=== PATIENT | female | born 1950 | race Two or more races ===

== ENCOUNTER → 2016-11-14 | Outpatient (CLI) | payer MEDICARE, OTHER ==
[2016-11-14 13:01] LABS: Albumin 3.6 g/dL (3.4-5.0); BUN/Creatinine Ratio 23.2; Bilirubin, Total 0.3 mg/dL (0.2-1.0); Calcium 8.9 mg/dL (8.5-10.1); Potassium 3.8 mmol/L (3.5-5.1); Total Protein 6.6 g/dL (6.4-8.2)
== END | disposition home or self-care (01) ==
LOC: Rad HDHVI 08:47
PROVIDERS: ATTEND Internal Medicine Cardiovascular Disease
DX: E78.00 Pure hypercholesterolemia, unspecified (principal); I10 Essential (primary) hypertension; E11.9 Type 2 diabetes mellitus without complications
CPT/HCPCS: 36415; 77078; 80053; 80061; 83036

== ENCOUNTER → 2017-01-14 | Outpatient (CLI) | payer MEDICARE ==
[2017-01-14 16:50] LABS: Urine Bilirubin Negative (Negative); Urine Blood Negative /uL (Negative); Urine Color PINK (Yellow); Urine Glucose Normal (Normal); Urine Ketone Negative (Negative); Urine Nitrite Negative (Negative); Urine Urobilinogen Normal (Negative)
== END | disposition home or self-care (01) ==
LOC: LAB 14:10
PROVIDERS: ATTEND Internal Medicine Cardiovascular Disease
DX: N39.0 Urinary tract infection, site not specified (principal)
CPT/HCPCS: 81003; 87086

== ENCOUNTER → 2017-04-21 | Outpatient (CLI) | payer MEDICARE ==
[2017-04-21 13:26] LABS: Albumin 4.1 g/dL (3.4-5.0); BUN/Creatinine Ratio 27.6; Bilirubin, Total 0.3 mg/dL (0.2-1.0); Calcium 10.4 mg/dL (8.5-10.1); Potassium 4.7 mmol/L (3.5-5.1); Total Protein 7.6 g/dL (6.4-8.2)
== END | disposition home or self-care (01) ==
LOC: LAB 09:20
PROVIDERS: ATTEND Internal Medicine Cardiovascular Disease
DX: I10 Essential (primary) hypertension (principal); E11.9 Type 2 diabetes mellitus without complications; E78.00 Pure hypercholesterolemia, unspecified
CPT/HCPCS: 36415; 80053; 80061; 83036

== ENCOUNTER → 2018-03-22 | Outpatient (CLI) | payer MEDICARE ==
[2018-03-22 13:42] LABS: BUN/Creatinine Ratio 23.5; Potassium 3.9 mmol/L (3.5-5.1)
== END | disposition home or self-care (01) ==
LOC: LAB 10:47
PROVIDERS: ATTEND Internal Medicine
DX: E11.9 Type 2 diabetes mellitus without complications (principal); I10 Essential (primary) hypertension
CPT/HCPCS: 36415; 80048; 83036

== ENCOUNTER → 2018-05-11 | Outpatient (CLI) | payer MEDICARE ==
[2018-05-11 13:06] VITALS: BP 147/74
[2018-05-11 13:26] VITALS: BP 147/74
== END | disposition home or self-care (01) ==
LOC: CHF HDHVI 13:00
PROVIDERS: ATTEND Internal Medicine Cardiovascular Disease
DX: I10 Essential (primary) hypertension (principal)
CPT/HCPCS: G0463

== ENCOUNTER → 2018-05-12 | Outpatient (CLI) | payer MEDICARE ==
[~2018-05-12] MED LIST: IOHEXOL 350 MG/ML 100ML IJ ONE; READI-CAT 2 (BARIUM SULF)(VANILLA SMOOTHIE) 450ML ONE
[2018-05-12 11:15] VITALS: BP 128/59
[2018-05-12 12:00] VITALS: BP 138/62
== END | disposition home or self-care (01) ==
LOC: Rad HDHVI 11:05
PROVIDERS: ATTEND Internal Medicine Cardiovascular Disease
DX: K57.90 Diverticulosis of intestine, part unspecified, without perforation or abscess without bleeding (principal); R16.0 Hepatomegaly, not elsewhere classified
CPT/HCPCS: 74177; 82565; G0463; Q9967

== ENCOUNTER → 2018-05-13 | Outpatient (CLI) | payer MEDICARE | END | disposition home or self-care (01) | LOC: Rad HDHVI 13:56 | PROVIDERS: ATTEND Internal Medicine Cardiovascular Disease | DX: I10 Essential (primary) hypertension (principal); E78.5 Hyperlipidemia, unspecified | CPT/HCPCS: 93306 ==

== ENCOUNTER → 2018-05-20 | Outpatient (CLI) | payer MEDICARE ==
[~2018-05-20] VITALS: Ht 165.1 cm; Wt 85.7 kg
== END | disposition home or self-care (01) ==
LOC: Rad HDHVI 13:55
PROVIDERS: ATTEND Internal Medicine Cardiovascular Disease
DX: I10 Essential (primary) hypertension (principal); E11.9 Type 2 diabetes mellitus without complications; E78.5 Hyperlipidemia, unspecified; Z68.31 Body mass index [BMI] 31.0-31.9, adult
CPT/HCPCS: 78452; 93017; 96374; A9500

== ENCOUNTER → 2018-05-24 | Outpatient (CLI) | payer MEDICARE ==
[2018-05-24 12:30] LABS: Albumin 3.9 g/dL (3.4-5.0)
[2018-05-24 12:34] LABS: Bilirubin, Direct 0.1 mg/dL (0-0.2); Bilirubin, Total 0.5 mg/dL (0.2-1.0); Total Protein 7.2 g/dL (6.4-8.2)
[2018-05-24 12:40] LABS: Hepatitis B Surface Antibody Negative
[2018-05-24 13:17] LABS: Hepatitis A Total Antibody Positive
[2018-05-24 13:50] LABS: Hepatitis B Core Total AB Negative; Hepatitis B Surface Antigen Negative (Negative); Hepatitis C Antibody Negative (Negative)
== END | disposition home or self-care (01) ==
LOC: LAB 10:06
PROVIDERS: ATTEND Internal Medicine Cardiovascular Disease
DX: K74.1 Hepatic sclerosis (principal); Z20.9 Contact with and (suspected) exposure to unspecified communicable disease; K74.5 Biliary cirrhosis, unspecified
CPT/HCPCS: 36415; 80076; 86704; 86706; 86708; 86803; 87340

== ENCOUNTER → 2018-06-28 | Outpatient (CLI) | payer MEDICARE ==
[2018-06-28 12:00] LABS: Chloride 104 mmol/L (98-107); Potassium 3.9 mmol/L (3.5-5.1); Sodium 136 mmol/L (136-145)
[2018-06-28 12:27] LABS: Alanine Aminotransferase 48 U/L (13-56); Albumin 3.7 g/dL (3.4-5.0); Alkaline Phosphatase 72 U/L (45-117); Anion Gap 8 (5-15); Aspartate Aminotransferase 18 U/L (15-37); BUN/Creatinine Ratio 24.7; Bilirubin, Total 0.3 mg/dL (0.2-1.0); Blood Urea Nitrogen 24 mg/dL (7-18); Calcium 9.4 mg/dL (8.5-10.1); Carbon Dioxide 24 mmol/L (21-32); Cholesterol 211 mg/dL (< 200); GFR African American > 60 mL/min; GFR Non-African American > 60 mL/min; Glucose 220 mg/dL (74-106); HDL Cholesterol 31 mg/dL (40-59); LDL Cholesterol 161 mg/dL (< 100); Triglycerides 207 mg/dL (< 150)
== END | disposition home or self-care (01) ==
LOC: LAB 08:31
PROVIDERS: ATTEND Internal Medicine Cardiovascular Disease
DX: E78.5 Hyperlipidemia, unspecified (principal); I10 Essential (primary) hypertension; E11.9 Type 2 diabetes mellitus without complications
CPT/HCPCS: 36415; 80053; 80061; 83036

== ENCOUNTER → 2018-07-14 | Outpatient (CLI) | payer MEDICARE ==
[~2018-07-14] MED LIST changes: -READI-CAT 2 (BARIUM SULF)(VANILLA SMOOTHIE) 450ML ONE
[2018-07-14 13:10] VITALS: BP 129/74
--- NOTE | 2018-07-14 13:10 | NUR ---
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 PT TO ADMINISTER DOSE OF 0.75MG Q WEEK. REVIEWED DOSING AND ADMINISTRATION. WITNESSED PT FOR MEDICATION ADMINISTRATION. PROCEEDED WELL. TOLERATED WELL. FURTHER QUESTIONS DENIED.
== END | disposition home or self-care (01) ==
LOC: CHF HDHVI 13:07
PROVIDERS: ATTEND Internal Medicine Cardiovascular Disease
DX: I10 Essential (primary) hypertension (principal); R51 Headache; E78.5 Hyperlipidemia, unspecified
CPT/HCPCS: G0463

== ENCOUNTER → 2018-07-16 | Outpatient (CLI) | payer MEDICARE ==
[2018-07-16 12:32] VITALS: BP 110/56
--- NOTE | 2018-07-16 12:38 | NUR ---
IN TO CLINIC FOR CT SCAN. IV PLACED TO LEFT AC BY CACH[employer]RO CARDENAS. SITE USED FOR CT SCAN. BENIGN POST CT SCAN. DCD AND PT RECIEVED METFORMIN INSTRUCTIONS WITH REPEAT BACK INSTRUCTIONS OBTAINED. Discharge Instructions See e-MAR for any mediations given with this visit. Patient education given on disease process. Patient verbalized understanding. Previous labs reviewed. Patient discharged in stable condition with after care instructions and follow up appointment.
== END | disposition home or self-care (01) ==
LOC: Rad HDHVI 11:29
PROVIDERS: ATTEND Internal Medicine Cardiovascular Disease
DX: I67.82 Cerebral ischemia (principal); M48.02 Spinal stenosis, cervical region
CPT/HCPCS: 70470; 72125; 82565; G0463

== ENCOUNTER → 2018-09-09 | Outpatient (CLI) | payer MEDICARE ==
[2018-09-09 12:20] LABS: Basophils # (auto) 0 uL; Basophils % (auto) 0.5 % (0.0-2.0); Eosinophils # (auto) 0.2 uL; Eosinophils % (auto) 2.1 % (0.0-7.0); Hematocrit 39.1 % (36.0-46.0); Lymphocytes # (auto) 2.6 uL; Lymphocytes % (auto) 28.7 % (10.0-50.0); Mean Corpuscular Hemoglobin 30.7 pg (28.0-32.0); Mean Corpuscular Hgb Conc. 33.3 g/dL (32.0-36.0); Mean Corpuscular Volume 92.2 fL (80.0-100.0); Monocytes # (auto) 0.5 uL; Monocytes % (auto) 5.8 % (0.0-12.0); Neutrophils # (auto) 5.8 uL; Neutrophils % (auto) 62.9 % (37.0-80.0); Nucleated Red Blood Cells % 0.2 %; Platelet Count (auto) 277 10^3/uL (140-450); Red Blood Cells 4.24 10^6/uL (4.0-5.20); Red Cell Distribution Width 12.7 % (11.8-14.3); White Blood Cell 9.2 10^3/uL (4.4-10.8)
[2018-09-09 12:22] LABS: Albumin 4.1 g/dL (3.4-5.0); Calcium 10.1 mg/dL (8.5-10.1); Potassium 3.8 mmol/L (3.5-5.1)
[2018-09-09 12:28] LABS: BUN/Creatinine Ratio 34.8; Bilirubin, Total 0.2 mg/dL (0.2-1.0); Total Protein 7.5 g/dL (6.4-8.2)
[2018-09-09 12:32] LABS: Free T4 (Free Thyroxine) 1.28 ng/dL (0.89-1.76); Hepatitis B Surface Antibody Negative
[2018-09-09 12:34] LABS: Urine Blood Negative /uL (Negative); Urine Specific Gravity 1.025 (1.001-1.035)
[2018-09-09 13:09] LABS: Hepatitis A Total Antibody Positive
[2018-09-09 13:39] LABS: Hepatitis B Core Total AB Negative; Hepatitis B Surface Antigen Negative (Negative); Hepatitis C Antibody Negative (Negative)
== END | disposition home or self-care (01) ==
LOC: LAB 09:15
PROVIDERS: ATTEND Internal Medicine Cardiovascular Disease
DX: E55.9 Vitamin D deficiency, unspecified (principal); E78.5 Hyperlipidemia, unspecified; K74.1 Hepatic sclerosis; I10 Essential (primary) hypertension; E03.9 Hypothyroidism, unspecified; E11.9 Type 2 diabetes mellitus without complications; D51.9 Vitamin B12 deficiency anemia, unspecified; N39.0 Urinary tract infection, site not specified; Z20.5 Contact with and (suspected) exposure to viral hepatitis
CPT/HCPCS: 36415; 80053; 80061; 81003; 82306; 82607; 83036; 84439; 84443; 85025; 86704; 86706; 86708; 86803; 87086; 87340

== ENCOUNTER → 2018-12-01 | Outpatient (CLI) | payer MEDICARE ==
[~2018-12-01] VITALS: Ht 165.1 cm; Wt 84.4 kg
[~2018-12-01] MED LIST changes: +CHLO50TA PO; +CHOL20007 PO; +CLOP75TA28 PO; -IOHEXOL 350 MG/ML 100ML IJ ONE; +LISI40TA PO; +METF-370 PO; +SITA100T7 PO
[2018-12-01 12:10] LABS: Basophils # (auto) 0 uL; Basophils % (auto) 0.6 % (0.0-2.0); Eosinophils # (auto) 0.1 uL; Eosinophils % (auto) 1.9 % (0.0-7.0); Hematocrit 39.8 % (36.0-46.0); Hemoglobin 13.4 g/dL (12.2-16.2); Lymphocytes # (auto) 2.3 uL; Lymphocytes % (auto) 34.3 % (10.0-50.0); Mean Corpuscular Hemoglobin 31.8 pg (28.0-32.0); Mean Corpuscular Hgb Conc. 33.7 g/dL (32.0-36.0); Mean Corpuscular Volume 94.6 fL (80.0-100.0); Monocytes # (auto) 0.4 uL; Monocytes % (auto) 6.7 % (0.0-12.0); Neutrophils # (auto) 3.7 uL; Neutrophils % (auto) 56.5 % (37.0-80.0); Nucleated Red Blood Cells % 0.1 %; Platelet Count (auto) 249 10^3/uL (140-450); Red Blood Cells 4.21 10^6/uL (4.0-5.20); Red Cell Distribution Width 12.7 % (11.8-14.3); White Blood Cell 6.6 10^3/uL (4.4-10.8)
[2018-12-01 12:18] LABS: Potassium 3.6 mmol/L (3.5-5.1)
[2018-12-01 12:23] LABS: INR < 0.93 (0.9-1.15); Partial Thromboplastin Time 27.4 sec (23.64-32.05)
[2018-12-01 12:26] LABS: BUN/Creatinine Ratio 28.2; Calcium 10.4 mg/dL (8.5-10.1)
== END | disposition home or self-care (01) ==
LOC: Rad HDHVI 08:39
PROVIDERS: ATTEND Internal Medicine Cardiovascular Disease
DX: Z01.812 Encounter for preprocedural laboratory examination (principal); D64.9 Anemia, unspecified; R79.1 Abnormal coagulation profile; I10 Essential (primary) hypertension; Z87.891 Personal history of nicotine dependence
CPT/HCPCS: 36415; 71046; 80048; 85025; 85610; 85730

== ENCOUNTER 2018-12-02 06:56 | Day surgery (SDC) | payer MEDICARE ==
[~2018-12-02] VITALS: Ht 165.1 cm; Wt 84.4 kg
[2018-12-02] MEDS ORDERED: fentaNYL CITRATE 100 MCG/2 ML VL ONE (10:07)
[2018-12-02] MEDS ORDERED: ANGIOMAX 250 MG VIAL IV ONE (10:07)
[2018-12-02] MEDS ORDERED: MIDAZOLAM HCL 1MG/1ML-2 ML VIAL ONE (10:08)
[2018-12-02] MEDS ORDERED: LIDOCAINE 2%HCL (LOCAL ANESTH.) INJ 20ML MDV ONE (10:08)
[2018-12-02] MEDS ORDERED: SODIUM CHL 0.9% 0 ML ONE (10:08)
[2018-12-02] MEDS ORDERED: IOHEXOL 350 MG/ML 100ML IJ ONE ×2 (10:08→10:16)
[2018-12-02] MEDS ORDERED: ACETAMINOPHEN 500 MG TAB PO PRN (11:30)
== END 2018-12-02 13:20 | disposition home or self-care (01) ==
LOC: CATH 06:56
PROVIDERS: ATTEND Internal Medicine Cardiovascular Disease
DX: R07.9 Chest pain, unspecified (principal); R94.39 Abnormal result of other cardiovascular function study; R06.02 Shortness of breath; I73.9 Peripheral vascular disease, unspecified; I10 Essential (primary) hypertension; E11.9 Type 2 diabetes mellitus without complications; Z79.84 Long term (current) use of oral hypoglycemic drugs; Z79.899 Other long term (current) drug therapy; Z87.891 Personal history of nicotine dependence; Z82.49 Family history of ischemic heart disease and other diseases of the circulatory system
CPT/HCPCS: 93458; C1760; C1894; J1644; J2250; J3010; J7030; Q9967; 99152

== ENCOUNTER → 2018-12-21 | Outpatient (CLI) | payer MEDICARE ==
[2018-12-21 16:01] LABS: Calcium 10.4 mg/dL (8.5-10.1); Potassium 3.9 mmol/L (3.5-5.1); Uric Acid 6.2 mg/dL (2.6-6.0)
== END | disposition home or self-care (01) ==
LOC: LAB 11:17
PROVIDERS: ATTEND Internal Medicine
DX: M10.9 Gout, unspecified (principal)
CPT/HCPCS: 36415; 80048; 84550

== ENCOUNTER → 2019-02-08 | Outpatient (CLI) | payer MEDICARE ==
[2019-02-08 11:52] LABS: Potassium 3.8 mmol/L (3.5-5.1)
[2019-02-08 11:55] LABS: BUN/Creatinine Ratio 26.3; Calcium 9.7 mg/dL (8.5-10.1); Uric Acid 3.8 mg/dL (2.6-6.0)
== END | disposition home or self-care (01) ==
LOC: LAB 09:28
PROVIDERS: ATTEND Internal Medicine
DX: M10.9 Gout, unspecified (principal); E11.9 Type 2 diabetes mellitus without complications
CPT/HCPCS: 36415; 80048; 83036; 84550

== ENCOUNTER → 2019-05-17 | Outpatient (CLI) | payer MEDICARE ==
[2019-05-17 12:13] LABS: Calcium 9.6 mg/dL (8.5-10.1); Potassium 3.8 mmol/L (3.5-5.1); Uric Acid 3.8 mg/dL (2.6-6.0)
== END | disposition home or self-care (01) ==
LOC: LAB 08:46
PROVIDERS: ATTEND Internal Medicine Cardiovascular Disease
DX: M10.9 Gout, unspecified (principal); E11.9 Type 2 diabetes mellitus without complications
CPT/HCPCS: 36415; 80048; 83036; 84550

== ENCOUNTER → 2019-06-01 | Outpatient (CLI) | payer MEDICARE | END | disposition home or self-care (01) | LOC: Rad HDHVI 12:26 | PROVIDERS: ATTEND Internal Medicine Cardiovascular Disease | DX: M48.061 Spinal stenosis, lumbar region without neurogenic claudication (principal); M81.0 Age-related osteoporosis without current pathological fracture; R52 Pain, unspecified; M40.56 Lordosis, unspecified, lumbar region; M25.78 Osteophyte, vertebrae; M12.88 Other specific arthropathies, not elsewhere classified, other specified site; M47.896 Other spondylosis, lumbar region; M77.8 Other enthesopathies, not elsewhere classified | CPT/HCPCS: 72131 ==

== ENCOUNTER → 2020-01-23 | Outpatient (CLI) | payer MEDICARE ==
[~2020-01-23] VITALS: Ht 165.1 cm; Wt 80.7 kg
[~2020-01-23] MED LIST changes: -LISI40TA PO; +LISI40TA11 PO
== END | disposition home or self-care (01) ==
LOC: Rad HDHVI 09:40
PROVIDERS: ATTEND Internal Medicine Cardiovascular Disease
DX: I10 Essential (primary) hypertension (principal); E11.9 Type 2 diabetes mellitus without complications; E78.5 Hyperlipidemia, unspecified; R07.9 Chest pain, unspecified; Z82.49 Family history of ischemic heart disease and other diseases of the circulatory system
CPT/HCPCS: 78452; 93017; 96374; A9500

== ENCOUNTER → 2020-01-30 | Outpatient (CLI) | payer MEDICARE ==
[2020-01-30 12:02] VITALS: BP 109/59
--- NOTE | 2020-01-30 12:02 | NUR ---
Signature Attestation Statement: I MARIA BALL performed this procedure EECP on this patient. Addendum: 01/30/20 at 1202 by MARIA BALL [email or web address] Amended: Links added.
--- NOTE | 2020-01-30 12:02 | NUR ---
Signature Attestation Statement: I MARIA BALL performed this procedure EECP on this patient. Addendum: 01/30/20 at 1203 by MARIA BALL [email or web address] Amended: Links added.
--- NOTE | 2020-01-30 12:03 | NUR ---
Signature Attestation Statement: I MARIA BALL performed this procedure EECP on this patient. Addendum: 01/30/20 at 1204 by MARIA BALL [email or web address] Amended: Links added.
[2020-01-30 12:45] VITALS: BP 100/61
--- NOTE | 2020-01-30 12:45 | NUR ---
Signature Attestation Statement: I MARIA BALL performed this procedure EECP on this patient. Addendum: 01/30/20 at 1245 by MARIA BALL [email or web address] Amended: Links added.
--- NOTE | 2020-01-30 12:58 | NUR ---
Signature Attestation Statement: I MARIA BALL performed this procedure EECP on this patient. Addendum: 01/30/20 at 1259 by MARIA BALL [email or web address] Amended: Links added.
== END | disposition home or self-care (01) ==
LOC: CHF HDHVI 11:36
PROVIDERS: ATTEND Internal Medicine Cardiovascular Disease
DX: I25.118 Atherosclerotic heart disease of native coronary artery with other forms of angina pectoris (principal); E11.42 Type 2 diabetes mellitus with diabetic polyneuropathy; E11.319 Type 2 diabetes mellitus with unspecified diabetic retinopathy without macular edema; E78.5 Hyperlipidemia, unspecified; I10 Essential (primary) hypertension; R06.02 Shortness of breath; I73.9 Peripheral vascular disease, unspecified; Z98.890 Other specified postprocedural states
CPT/HCPCS: G0166

== ENCOUNTER → 2020-01-31 | Outpatient (CLI) | payer MEDICARE ==
[2020-01-31 11:55] VITALS: BP 107/61
--- NOTE | 2020-01-31 11:55 | NUR ---
Signature Attestation Statement: I MARIA BALL performed this procedure EECP on this patient. Addendum: 01/31/20 at 1155 by MARIA BALL [email or web address] Amended: Links added.
--- NOTE | 2020-01-31 11:56 | NUR ---
Signature Attestation Statement: I MARIA BALL performed this procedure EECP on this patient. Addendum: 01/31/20 at 1156 by MARIA BALL [email or web address] Amended: Links added.
--- NOTE | 2020-01-31 12:53 | NUR ---
Signature Attestation Statement: I MARIA BALL performed this procedure EECP on this patient. Addendum: 01/31/20 at 1254 by MARIA BALL [email or web address] Amended: Links added.
[2020-01-31 12:54] VITALS: BP 114/72
--- NOTE | 2020-01-31 12:55 | NUR ---
Signature Attestation Statement: I MARIA BALL performed this procedure EECP on this patient. Addendum: 01/31/20 at 1255 by MARIA BALL [email or web address] Amended: Links added.
== END | disposition home or self-care (01) ==
LOC: CHF HDHVI 11:23
PROVIDERS: ATTEND Internal Medicine Cardiovascular Disease
DX: I25.118 Atherosclerotic heart disease of native coronary artery with other forms of angina pectoris (principal); I10 Essential (primary) hypertension; E78.5 Hyperlipidemia, unspecified; E11.319 Type 2 diabetes mellitus with unspecified diabetic retinopathy without macular edema; E11.42 Type 2 diabetes mellitus with diabetic polyneuropathy; R06.02 Shortness of breath; I73.9 Peripheral vascular disease, unspecified; Z98.890 Other specified postprocedural states
CPT/HCPCS: G0166

== ENCOUNTER → 2020-02-01 | Outpatient (CLI) | payer MEDICARE ==
[2020-02-01 11:53] VITALS: BP 121/63
--- NOTE | 2020-02-01 11:54 | NUR ---
Signature Attestation Statement: I MARIA BALL performed this procedure EECP on this patient. Addendum: 02/01/20 at 1154 by MARIA BALL [email or web address] Amended: Links added.
--- NOTE | 2020-02-01 11:55 | NUR ---
Signature Attestation Statement: I MARIA BALL performed this procedure EECP on this patient. Addendum: 02/01/20 at 1155 by MARIA BALL [email or web address] Amended: Links added.
--- NOTE | 2020-02-01 12:41 | NUR ---
Signature Attestation Statement: I MARIA BALL performed this procedure EECP on this patient. Addendum: 02/01/20 at 1241 by MARIA BALL [email or web address] Amended: Links added.
[2020-02-01 12:42] VITALS: BP 122/80
--- NOTE | 2020-02-01 12:51 | NUR ---
Signature Attestation Statement: I MARIA BALL performed this procedure EECP on this patient. Addendum: 02/01/20 at 1251 by MARIA BALL [email or web address] Amended: Links added.
== END | disposition home or self-care (01) ==
LOC: CHF HDHVI 11:26
PROVIDERS: ATTEND Internal Medicine Cardiovascular Disease
DX: I25.118 Atherosclerotic heart disease of native coronary artery with other forms of angina pectoris (principal); E11.42 Type 2 diabetes mellitus with diabetic polyneuropathy; E11.319 Type 2 diabetes mellitus with unspecified diabetic retinopathy without macular edema; E78.5 Hyperlipidemia, unspecified; R06.02 Shortness of breath; I10 Essential (primary) hypertension; I73.9 Peripheral vascular disease, unspecified; Z98.890 Other specified postprocedural states
CPT/HCPCS: G0166

== ENCOUNTER → 2020-02-02 | Outpatient (CLI) | payer MEDICARE ==
[2020-02-02 11:39] VITALS: BP 108/69
--- NOTE | 2020-02-02 11:39 | NUR ---
Signature Attestation Statement: I MARIA BALL performed this procedure EECP on this patient. Addendum: 02/02/20 at 1139 by MARIA BALL [email or web address] Amended: Links added.
--- NOTE | 2020-02-02 11:40 | NUR ---
Signature Attestation Statement: I MARIA BALL performed this procedure EECP on this patient. Addendum: 02/02/20 at 1141 by AMRIA BALL HDHI2 Amended: Links added.
--- NOTE | 2020-02-02 11:40 | NUR ---
Signature Attestation Statement: I MARIA BALL performed this procedure EECP on this patient. Addendum: 02/02/20 at 1140 by MARIA BALL [email or web address] Amended: Links added.
--- NOTE | 2020-02-02 12:40 | NUR ---
Signature Attestation Statement: I MARIA BALL performed this procedure EECP on this patient. Addendum: 02/02/20 at 1241 by MARIA BALL [email or web address] Amended: Links added.
[2020-02-02 12:41] VITALS: BP 109/66
--- NOTE | 2020-02-02 12:42 | NUR ---
Signature Attestation Statement: I MARIA BALL performed this procedure EECP on this patient. Addendum: 02/02/20 at 1242 by MARIA BALL [email or web address] Amended: Links added.
== END | disposition home or self-care (01) ==
LOC: CHF HDHVI 11:14
PROVIDERS: ATTEND Internal Medicine Cardiovascular Disease
DX: I25.118 Atherosclerotic heart disease of native coronary artery with other forms of angina pectoris (principal); E11.42 Type 2 diabetes mellitus with diabetic polyneuropathy; E11.319 Type 2 diabetes mellitus with unspecified diabetic retinopathy without macular edema; E11.51 Type 2 diabetes mellitus with diabetic peripheral angiopathy without gangrene; E78.5 Hyperlipidemia, unspecified; I10 Essential (primary) hypertension; R06.02 Shortness of breath; Z98.890 Other specified postprocedural states
CPT/HCPCS: G0166

== ENCOUNTER → 2020-02-03 | Outpatient (CLI) | payer MEDICARE ==
[2020-02-03 12:02] VITALS: BP 122/67
--- NOTE | 2020-02-03 12:02 | NUR ---
Signature Attestation Statement: I MARIA BALL performed this procedure EECP on this patient. Addendum: 02/03/20 at 1202 by MARIA BALL [email or web address] Amended: Links added.
--- NOTE | 2020-02-03 12:03 | NUR ---
Signature Attestation Statement: I MARIA BALL performed this procedure EECP on this patient. Addendum: 02/03/20 at 1203 by MARIA BALL [email or web address] Amended: Links added.
--- NOTE | 2020-02-03 12:04 | NUR ---
Signature Attestation Statement: I MARIA BALL performed this procedure EECP on this patient. Addendum: 02/03/20 at 1204 by MARIA BALL [email or web address] Amended: Links added.
--- NOTE | 2020-02-03 12:49 | NUR ---
Signature Attestation Statement: I MARIA BALL performed this procedure EECP on this patient. Addendum: 02/03/20 at 1250 by MARIA BALL [email or web address] Amended: Links added.
[2020-02-03 12:50] VITALS: BP 111/65
--- NOTE | 2020-02-03 12:50 | NUR ---
Signature Attestation Statement: I MARIA BALL performed this procedure EECP on this patient. Addendum: 02/03/20 at 1251 by MARIA BALL [email or web address] Amended: Links added.
== END | disposition home or self-care (01) ==
LOC: CHF HDHVI 11:30
PROVIDERS: ATTEND Internal Medicine Cardiovascular Disease
DX: I25.118 Atherosclerotic heart disease of native coronary artery with other forms of angina pectoris (principal)
CPT/HCPCS: G0166

== ENCOUNTER → 2020-02-06 | Outpatient (CLI) | payer MEDICARE ==
[2020-02-06 11:51] VITALS: BP 113/63
--- NOTE | 2020-02-06 11:51 | NUR ---
Signature Attestation Statement: I MARIA BALL performed this procedure EECP on this patient. Addendum: 02/06/20 at 1151 by MARIA BALL [email or web address] Amended: Links added.
--- NOTE | 2020-02-06 11:52 | NUR ---
Signature Attestation Statement: I MARIA BALL performed this procedure EECP on this patient. Addendum: 02/06/20 at 1152 by MARIA BALL [email or web address] Amended: Links added.
--- NOTE | 2020-02-06 11:53 | NUR ---
Signature Attestation Statement: I MARIA BALL performed this procedure EECP on this patient. Addendum: 02/06/20 at 1153 by MARIA BALL [email or web address] Amended: Links added.
[2020-02-06 12:24] VITALS: BP 107/67
--- NOTE | 2020-02-06 12:24 | NUR ---
Signature Attestation Statement: I MARIA BALL performed this procedure EECP on this patient. Addendum: 02/06/20 at 1224 by MARIA BALL [email or web address] Amended: Links added.
--- NOTE | 2020-02-06 12:37 | NUR ---
Signature Attestation Statement: I MARIA BALL performed this procedure EECP on this patient. Addendum: 02/06/20 at 1238 by MARIA BALL [email or web address] Amended: Links added.
== END | disposition home or self-care (01) ==
LOC: CHF HDHVI 11:24
PROVIDERS: ATTEND Internal Medicine Cardiovascular Disease
DX: I25.118 Atherosclerotic heart disease of native coronary artery with other forms of angina pectoris (principal)
CPT/HCPCS: G0166

== ENCOUNTER → 2020-02-07 | Outpatient (CLI) | payer MEDICARE ==
[2020-02-07 11:58] VITALS: BP 120/66
--- NOTE | 2020-02-07 11:58 | NUR ---
Signature Attestation Statement: I MARIA BALL performed this procedure EECP on this patient. Addendum: 02/07/20 at 1159 by MARIA BALL [email or web address] Amended: Links added.
--- NOTE | 2020-02-07 12:00 | NUR ---
Signature Attestation Statement: I MARIA BALL performed this procedure EECP on this patient. Addendum: 02/07/20 at 1200 by MARIA BALL [email or web address] Amended: Links added.
[2020-02-07 12:33] VITALS: BP 114/70
--- NOTE | 2020-02-07 12:33 | NUR ---
Signature Attestation Statement: I MARIA BALL performed this procedure EECP on this patient. Addendum: 02/07/20 at 1233 by MARIA BALL [email or web address] Amended: Links added.
--- NOTE | 2020-02-07 12:46 | NUR ---
Signature Attestation Statement: I MARIA BALL performed this procedure EECP on this patient. Addendum: 02/07/20 at 1247 by MARIA BALL [email or web address] Amended: Links added.
== END | disposition home or self-care (01) ==
LOC: CHF HDHVI 11:28
PROVIDERS: ATTEND Internal Medicine Cardiovascular Disease
DX: I25.118 Atherosclerotic heart disease of native coronary artery with other forms of angina pectoris (principal); I73.9 Peripheral vascular disease, unspecified; I10 Essential (primary) hypertension; R06.02 Shortness of breath; E78.5 Hyperlipidemia, unspecified; E11.42 Type 2 diabetes mellitus with diabetic polyneuropathy; E11.319 Type 2 diabetes mellitus with unspecified diabetic retinopathy without macular edema; Z98.890 Other specified postprocedural states
CPT/HCPCS: G0166

== ENCOUNTER → 2020-02-08 | Outpatient (CLI) | payer MEDICARE ==
[2020-02-08 12:02] VITALS: BP 129/70
--- NOTE | 2020-02-08 12:02 | NUR ---
Signature Attestation Statement: I MARIA BALL performed this procedure EECP on this patient. Addendum: 02/08/20 at 1203 by MARIA BALL [email or web address] Amended: Links added.
--- NOTE | 2020-02-08 12:02 | NUR ---
Signature Attestation Statement: I MARIA BALL performed this procedure EECP on this patient. Addendum: 02/08/20 at 1202 by MARIA BALL [email or web address] Amended: Links added.
[2020-02-08 12:35] VITALS: BP 121/71
--- NOTE | 2020-02-08 12:35 | NUR ---
Signature Attestation Statement: I MARIA BALL performed this procedure EECP on this patient. Addendum: 02/08/20 at 1235 by MARIA BALL [email or web address] Amended: Links added.
--- NOTE | 2020-02-08 12:47 | NUR ---
Signature Attestation Statement: I MARIA BALL performed this procedure EECP on this patient. Addendum: 02/08/20 at 1247 by MARIA BALL [email or web address] Amended: Links added.
== END | disposition home or self-care (01) ==
LOC: CHF HDHVI 11:23
PROVIDERS: ATTEND Internal Medicine Cardiovascular Disease
DX: I25.118 Atherosclerotic heart disease of native coronary artery with other forms of angina pectoris (principal); I10 Essential (primary) hypertension; E78.5 Hyperlipidemia, unspecified; R06.02 Shortness of breath; E11.42 Type 2 diabetes mellitus with diabetic polyneuropathy; E11.319 Type 2 diabetes mellitus with unspecified diabetic retinopathy without macular edema; I73.9 Peripheral vascular disease, unspecified; Z98.890 Other specified postprocedural states
CPT/HCPCS: G0166

== ENCOUNTER → 2020-02-09 | Outpatient (CLI) | payer MEDICARE ==
[2020-02-09 12:18] VITALS: BP 123/74
--- NOTE | 2020-02-09 12:19 | NUR ---
Signature Attestation Statement: I MARIA BALL performed this procedure EECP on this patient. Addendum: 02/09/20 at 1219 by MARIA BALL [email or web address] Amended: Links added.
--- NOTE | 2020-02-09 12:20 | NUR ---
Signature Attestation Statement: I MARIA BALL performed this procedure EECP on this patient. Addendum: 02/09/20 at 1220 by MARIA BALL [email or web address] Amended: Links added.
--- NOTE | 2020-02-09 12:50 | NUR ---
Signature Attestation Statement: I MARIA BALL performed this procedure EECP on this patient. Addendum: 02/09/20 at 1251 by MARIA BALL [email or web address] Amended: Links added.
[2020-02-09 12:51] VITALS: BP 116/69
--- NOTE | 2020-02-09 13:01 | NUR ---
Signature Attestation Statement: I MARIA BALL performed this procedure EECP on this patient. Addendum: 02/09/20 at 1302 by MARIA BALL [email or web address] Amended: Links added.
== END | disposition home or self-care (01) ==
LOC: CHF HDHVI 11:26
PROVIDERS: ATTEND Internal Medicine Cardiovascular Disease
DX: I25.118 Atherosclerotic heart disease of native coronary artery with other forms of angina pectoris (principal); I10 Essential (primary) hypertension; R06.02 Shortness of breath; E78.5 Hyperlipidemia, unspecified; I73.9 Peripheral vascular disease, unspecified; E11.42 Type 2 diabetes mellitus with diabetic polyneuropathy; E11.319 Type 2 diabetes mellitus with unspecified diabetic retinopathy without macular edema; Z98.890 Other specified postprocedural states
CPT/HCPCS: G0166

== ENCOUNTER → 2020-02-10 | Outpatient (CLI) | payer MEDICARE ==
[2020-02-10 12:00] VITALS: BP 106/70
[2020-02-10 12:36] VITALS: BP 101/63
== END | disposition home or self-care (01) ==
LOC: CHF HDHVI 11:26
PROVIDERS: ATTEND Internal Medicine Cardiovascular Disease
DX: I25.118 Atherosclerotic heart disease of native coronary artery with other forms of angina pectoris (principal); R06.02 Shortness of breath; I73.9 Peripheral vascular disease, unspecified; E78.5 Hyperlipidemia, unspecified; I10 Essential (primary) hypertension; E11.42 Type 2 diabetes mellitus with diabetic polyneuropathy; E11.319 Type 2 diabetes mellitus with unspecified diabetic retinopathy without macular edema; Z98.890 Other specified postprocedural states
CPT/HCPCS: G0166

== ENCOUNTER → 2020-02-13 | Outpatient (CLI) | payer MEDICARE ==
[2020-02-13 12:08] VITALS: BP 130/72
[2020-02-13 12:42] VITALS: BP 122/76
== END | disposition home or self-care (01) ==
LOC: CHF HDHVI 11:24
PROVIDERS: ATTEND Internal Medicine Cardiovascular Disease
DX: I25.118 Atherosclerotic heart disease of native coronary artery with other forms of angina pectoris (principal); R06.02 Shortness of breath; I73.9 Peripheral vascular disease, unspecified; I10 Essential (primary) hypertension; E78.5 Hyperlipidemia, unspecified; E11.42 Type 2 diabetes mellitus with diabetic polyneuropathy; E11.319 Type 2 diabetes mellitus with unspecified diabetic retinopathy without macular edema; Z98.890 Other specified postprocedural states
CPT/HCPCS: G0166

== ENCOUNTER → 2020-02-14 | Outpatient (CLI) | payer MEDICARE ==
[2020-02-14 11:57] VITALS: BP 107/57
[2020-02-14 12:31] VITALS: BP 98/63
== END | disposition home or self-care (01) ==
LOC: CHF HDHVI 11:23
PROVIDERS: ATTEND Internal Medicine Cardiovascular Disease
DX: I25.118 Atherosclerotic heart disease of native coronary artery with other forms of angina pectoris (principal); E11.9 Type 2 diabetes mellitus without complications; R06.02 Shortness of breath; I73.9 Peripheral vascular disease, unspecified; I10 Essential (primary) hypertension; E78.5 Hyperlipidemia, unspecified; E11.42 Type 2 diabetes mellitus with diabetic polyneuropathy; E11.319 Type 2 diabetes mellitus with unspecified diabetic retinopathy without macular edema; Z98.890 Other specified postprocedural states
CPT/HCPCS: G0166

== ENCOUNTER → 2020-02-16 | Outpatient (CLI) | payer MEDICARE ==
[2020-02-16 11:56] VITALS: BP 136/74
--- NOTE | 2020-02-16 11:56 | NUR ---
Signature Attestation Statement: I MARIA BALL performed this procedure EECP on this patient. Addendum: 02/16/20 at 1157 by MARIA BALL [email or web address] Amended: Links added.
--- NOTE | 2020-02-16 11:58 | NUR ---
Signature Attestation Statement: I MARIA BALL performed this procedure EECP on this patient. Addendum: 02/16/20 at 1158 by MARIA BALL [email or web address] Amended: Links added.
--- NOTE | 2020-02-16 11:59 | NUR ---
Signature Attestation Statement: I MARIA BALL performed this procedure EECP on this patient. Addendum: 02/16/20 at 1159 by MARIA BALL [email or web address] Amended: Links added.
--- NOTE | 2020-02-16 12:26 | NUR ---
Signature Attestation Statement: I MARIA BALL performed this procedure EECP on this patient. Addendum: 02/16/20 at 1227 by MARIA BALL [email or web address] Amended: Links added.
[2020-02-16 12:27] VITALS: BP 121/81
--- NOTE | 2020-02-16 12:38 | NUR ---
Signature Attestation Statement: I MARIA BALL performed this procedure EECP on this patient. Addendum: 02/16/20 at 1238 by MARIA BALL [email or web address] Amended: Links added.
== END | disposition home or self-care (01) ==
LOC: CHF HDHVI 11:23
PROVIDERS: ATTEND Internal Medicine Cardiovascular Disease
DX: I25.118 Atherosclerotic heart disease of native coronary artery with other forms of angina pectoris (principal); E11.42 Type 2 diabetes mellitus with diabetic polyneuropathy; E11.319 Type 2 diabetes mellitus with unspecified diabetic retinopathy without macular edema; E11.51 Type 2 diabetes mellitus with diabetic peripheral angiopathy without gangrene; E78.5 Hyperlipidemia, unspecified; I10 Essential (primary) hypertension; R06.02 Shortness of breath; Z98.890 Other specified postprocedural states
CPT/HCPCS: G0166

== ENCOUNTER → 2020-02-17 | Outpatient (CLI) | payer MEDICARE ==
[2020-02-17 11:22] VITALS: BP 151/78
--- NOTE | 2020-02-17 11:23 | NUR ---
Signature Attestation Statement: I MARIA BALL performed this procedure EECP on this patient. Addendum: 02/17/20 at 1123 by MARIA BALL [email or web address] Amended: Links added.
--- NOTE | 2020-02-17 11:24 | NUR ---
Signature Attestation Statement: I MARIA BALL performed this procedure EECP on this patient. Addendum: 02/17/20 at 1124 by MARIA BALL [email or web address] Amended: Links added.
[2020-02-17 11:46] VITALS: BP 136/84
--- NOTE | 2020-02-17 11:46 | NUR ---
Signature Attestation Statement: I MARIA BALL performed this procedure EECP on this patient. Addendum: 02/17/20 at 1146 by MARIA BALL [email or web address] Amended: Links added.
--- NOTE | 2020-02-17 11:46 | NUR ---
Signature Attestation Statement: I MARIA BALL performed this procedure EECP on this patient. Addendum: 02/17/20 at 1147 by MARIA BALL [email or web address] Amended: Links added.
== END | disposition home or self-care (01) ==
LOC: CHF HDHVI 10:43
PROVIDERS: ATTEND Internal Medicine Cardiovascular Disease
DX: I25.118 Atherosclerotic heart disease of native coronary artery with other forms of angina pectoris (principal); E11.42 Type 2 diabetes mellitus with diabetic polyneuropathy; E11.319 Type 2 diabetes mellitus with unspecified diabetic retinopathy without macular edema; E11.51 Type 2 diabetes mellitus with diabetic peripheral angiopathy without gangrene; I10 Essential (primary) hypertension; E78.5 Hyperlipidemia, unspecified; R06.02 Shortness of breath; Z98.890 Other specified postprocedural states
CPT/HCPCS: G0166

== ENCOUNTER → 2020-02-22 | Outpatient (CLI) | payer MEDICARE ==
[2020-02-22 12:09] VITALS: BP 128/71
--- NOTE | 2020-02-22 12:10 | NUR ---
Signature Attestation Statement: I MARIA BALL performed this procedure EECP on this patient. Addendum: 02/22/20 at 1210 by MARIA BALL [email or web address] Amended: Links added.
--- NOTE | 2020-02-22 12:11 | NUR ---
Signature Attestation Statement: I MARIA BALL performed this procedure EECP on this patient. Addendum: 02/22/20 at 1211 by MARIA BALL [email or web address] Amended: Links added.
--- NOTE | 2020-02-22 12:38 | NUR ---
Signature Attestation Statement: I MARIA BALL performed this procedure EECP on this patient. Addendum: 02/22/20 at 1239 by MARIA BALL [email or web address] Amended: Links added.
[2020-02-22 12:39] VITALS: BP 121/74
--- NOTE | 2020-02-22 12:50 | NUR ---
Signature Attestation Statement: I MARIA BALL performed this procedure EECP on this patient. Addendum: 02/22/20 at 1250 by MARIA BALL [email or web address] Amended: Links added.
== END | disposition home or self-care (01) ==
LOC: CHF HDHVI 11:23
PROVIDERS: ATTEND Internal Medicine Cardiovascular Disease
DX: I25.118 Atherosclerotic heart disease of native coronary artery with other forms of angina pectoris (principal); E11.42 Type 2 diabetes mellitus with diabetic polyneuropathy; E11.319 Type 2 diabetes mellitus with unspecified diabetic retinopathy without macular edema; E11.51 Type 2 diabetes mellitus with diabetic peripheral angiopathy without gangrene; I10 Essential (primary) hypertension; R06.02 Shortness of breath; E78.5 Hyperlipidemia, unspecified; Z98.890 Other specified postprocedural states
CPT/HCPCS: G0166

== ENCOUNTER → 2020-02-23 | Outpatient (CLI) | payer MEDICARE ==
[2020-02-23 11:58] VITALS: BP 107/60
--- NOTE | 2020-02-23 11:59 | NUR ---
Signature Attestation Statement: I MARIA BALL performed this procedure EECP on this patient. Addendum: 02/23/20 at 1200 by MARIA BALL [email or web address] Amended: Links added.
--- NOTE | 2020-02-23 11:59 | NUR ---
Signature Attestation Statement: I MARIA BALL performed this procedure EECP on this patient. Addendum: 02/23/20 at 1159 by MARIA BALL [email or web address] Amended: Links added.
--- NOTE | 2020-02-23 12:36 | NUR ---
Signature Attestation Statement: I MARIA BALL performed this procedure EECP on this patient. Addendum: 02/23/20 at 1237 by MARIA BALL [email or web address] Amended: Links added.
[2020-02-23 12:37] VITALS: BP 104/63
--- NOTE | 2020-02-23 12:49 | NUR ---
Signature Attestation Statement: I MARIA BALL performed this procedure EECP on this patient. Addendum: 02/23/20 at 1250 by MARIA BALL [email or web address] Amended: Links added.
== END | disposition home or self-care (01) ==
LOC: CHF HDHVI 11:36
PROVIDERS: ATTEND Internal Medicine Cardiovascular Disease
DX: I25.118 Atherosclerotic heart disease of native coronary artery with other forms of angina pectoris (principal); E11.319 Type 2 diabetes mellitus with unspecified diabetic retinopathy without macular edema; E11.42 Type 2 diabetes mellitus with diabetic polyneuropathy; E11.51 Type 2 diabetes mellitus with diabetic peripheral angiopathy without gangrene; I10 Essential (primary) hypertension; E78.5 Hyperlipidemia, unspecified; R06.02 Shortness of breath; Z98.890 Other specified postprocedural states
CPT/HCPCS: G0166

== ENCOUNTER → 2020-02-24 | Outpatient (CLI) | payer MEDICARE ==
[2020-02-24 11:58] VITALS: BP 113/69
--- NOTE | 2020-02-24 12:00 | NUR ---
Signature Attestation Statement: I MARIA BALL performed this procedure EECP on this patient. Addendum: 02/24/20 at 1201 by MARIA BALL [email or web address] Amended: Links added.
--- NOTE | 2020-02-24 12:01 | NUR ---
Signature Attestation Statement: I MARIA BALL performed this procedure EECP on this patient. Addendum: 02/24/20 at 1202 by MARIA BALL [email or web address] Amended: Links added.
--- NOTE | 2020-02-24 12:02 | NUR ---
Signature Attestation Statement: I MARIA BALL performed this procedure EECP on this patient. Addendum: 02/24/20 at 1203 by MARIA BALL [email or web address] Amended: Links added.
--- NOTE | 2020-02-24 12:41 | NUR ---
Signature Attestation Statement: I MARIA BALL performed this procedure EECP on this patient. Addendum: 02/24/20 at 1242 by MARIA BALL [email or web address] Amended: Links added.
[2020-02-24 12:42] VITALS: BP 108/62
--- NOTE | 2020-02-24 12:52 | NUR ---
Signature Attestation Statement: I MARIA BALL performed this procedure EECP on this patient. Addendum: 02/24/20 at 1253 by MARIA BALL [email or web address] Amended: Links added.
== END | disposition home or self-care (01) ==
LOC: CHF HDHVI 11:26
PROVIDERS: ATTEND Internal Medicine Cardiovascular Disease
DX: I25.118 Atherosclerotic heart disease of native coronary artery with other forms of angina pectoris (principal); E11.42 Type 2 diabetes mellitus with diabetic polyneuropathy; E11.319 Type 2 diabetes mellitus with unspecified diabetic retinopathy without macular edema; E11.51 Type 2 diabetes mellitus with diabetic peripheral angiopathy without gangrene; I10 Essential (primary) hypertension; R06.02 Shortness of breath; Z98.890 Other specified postprocedural states
CPT/HCPCS: G0166

== ENCOUNTER → 2020-02-27 | Outpatient (CLI) | payer MEDICARE ==
[2020-02-27 12:07] VITALS: BP 107/67
--- NOTE | 2020-02-27 12:08 | NUR ---
Signature Attestation Statement: I MARIA BALL performed this procedure EECP on this patient. Addendum: 02/27/20 at 1208 by MARIA BALL [email or web address] Amended: Links added.
--- NOTE | 2020-02-27 12:08 | NUR ---
Signature Attestation Statement: I MARIA BALL performed this procedure EECP on this patient. Addendum: 02/27/20 at 1209 by MARIA BALL [email or web address] Amended: Links added.
[2020-02-27 12:38] VITALS: BP 124/74
--- NOTE | 2020-02-27 12:38 | NUR ---
Signature Attestation Statement: I MARIA BALL performed this procedure EECP on this patient. Addendum: 02/27/20 at 1238 by MARIA BALL [email or web address] Amended: Links added.
--- NOTE | 2020-02-27 12:50 | NUR ---
Signature Attestation Statement: I MARIA BALL performed this procedure EECP on this patient. Addendum: 02/27/20 at 1250 by MARIA BALL [email or web address] Amended: Links added.
== END | disposition home or self-care (01) ==
LOC: CHF HDHVI 11:33
PROVIDERS: ATTEND Internal Medicine Cardiovascular Disease
DX: I25.118 Atherosclerotic heart disease of native coronary artery with other forms of angina pectoris (principal); E11.42 Type 2 diabetes mellitus with diabetic polyneuropathy; E11.319 Type 2 diabetes mellitus with unspecified diabetic retinopathy without macular edema; E11.51 Type 2 diabetes mellitus with diabetic peripheral angiopathy without gangrene; E78.5 Hyperlipidemia, unspecified; R06.02 Shortness of breath; I10 Essential (primary) hypertension; Z98.890 Other specified postprocedural states
CPT/HCPCS: G0166

== ENCOUNTER → 2020-02-28 | Outpatient (CLI) | payer MEDICARE ==
[2020-02-28 11:58] VITALS: BP 121/69
--- NOTE | 2020-02-28 11:58 | NUR ---
Signature Attestation Statement: I MARIA BALL performed this procedure EECP on this patient. Addendum: 02/28/20 at 1158 by MARIA BALL [email or web address] Amended: Links added.
--- NOTE | 2020-02-28 11:59 | NUR ---
Signature Attestation Statement: I MARIA BALL performed this procedure EECP on this patient. Addendum: 02/28/20 at 1159 by MARIA BALL [email or web address] Amended: Links added.
--- NOTE | 2020-02-28 12:00 | NUR ---
Signature Attestation Statement: I MARIA BALL performed this procedure EECP on this patient. Addendum: 02/28/20 at 1200 by MARIA BALL [email or web address] Amended: Links added.
[2020-02-28 12:33] VITALS: BP 112/66
--- NOTE | 2020-02-28 12:33 | NUR ---
Signature Attestation Statement: I MARIA BALL performed this procedure EECP on this patient. Addendum: 02/28/20 at 1233 by MARIA BALL [email or web address] Amended: Links added.
--- NOTE | 2020-02-28 12:45 | NUR ---
Signature Attestation Statement: I MARIA BALL performed this procedure EECP on this patient. Addendum: 02/28/20 at 1246 by MARIA BALL [email or web address] Amended: Links added.
== END | disposition home or self-care (01) ==
LOC: CHF HDHVI 11:32
PROVIDERS: ATTEND Internal Medicine Cardiovascular Disease
DX: I25.118 Atherosclerotic heart disease of native coronary artery with other forms of angina pectoris (principal); E11.42 Type 2 diabetes mellitus with diabetic polyneuropathy; E11.51 Type 2 diabetes mellitus with diabetic peripheral angiopathy without gangrene; E11.319 Type 2 diabetes mellitus with unspecified diabetic retinopathy without macular edema; I10 Essential (primary) hypertension; E78.5 Hyperlipidemia, unspecified; R06.02 Shortness of breath; Z98.890 Other specified postprocedural states
CPT/HCPCS: G0166

== ENCOUNTER → 2020-02-29 | Outpatient (CLI) | payer MEDICARE ==
[2020-02-29 11:49] VITALS: BP 138/76
--- NOTE | 2020-02-29 11:49 | NUR ---
Signature Attestation Statement: I MARIA BALL performed this procedure EECP on this patient. Addendum: 02/29/20 at 1149 by MARIA BALL [email or web address] Amended: Links added.
--- NOTE | 2020-02-29 11:50 | NUR ---
Signature Attestation Statement: I MARIA BALL performed this procedure EECP on this patient. Addendum: 02/29/20 at 1151 by MARIA BALL [email or web address] Amended: Links added.
--- NOTE | 2020-02-29 11:50 | NUR ---
Signature Attestation Statement: I MARIA BALL performed this procedure EECP on this patient. Addendum: 02/29/20 at 1150 by MARIA BALL [email or web address] Amended: Links added.
--- NOTE | 2020-02-29 12:22 | NUR ---
Signature Attestation Statement: I MARIA BALL performed this procedure EECP on this patient. Addendum: 02/29/20 at 1223 by MARIA BALL [email or web address] Amended: Links added.
[2020-02-29 12:23] VITALS: BP 120/71
--- NOTE | 2020-02-29 12:37 | NUR ---
Signature Attestation Statement: I MARIA BALL performed this procedure EECP on this patient. Addendum: 02/29/20 at 1238 by MARIA BALL [email or web address] Amended: Links added.
== END | disposition home or self-care (01) ==
LOC: CHF HDHVI 11:20
PROVIDERS: ATTEND Internal Medicine Cardiovascular Disease
DX: I25.118 Atherosclerotic heart disease of native coronary artery with other forms of angina pectoris (principal); E11.42 Type 2 diabetes mellitus with diabetic polyneuropathy; E11.51 Type 2 diabetes mellitus with diabetic peripheral angiopathy without gangrene; E11.319 Type 2 diabetes mellitus with unspecified diabetic retinopathy without macular edema; E78.5 Hyperlipidemia, unspecified; I10 Essential (primary) hypertension; R06.02 Shortness of breath; Z98.890 Other specified postprocedural states
CPT/HCPCS: G0166

== ENCOUNTER → 2020-03-01 | Outpatient (CLI) | payer MEDICARE ==
[2020-03-01 11:39] VITALS: BP 114/65
--- NOTE | 2020-03-01 11:39 | NUR ---
Signature Attestation Statement: I MARIA BALL performed this procedure EECP on this patient. Addendum: 03/01/20 at 1139 by MARIA BALL [email or web address] Amended: Links added.
--- NOTE | 2020-03-01 11:40 | NUR ---
Signature Attestation Statement: I MARIA BALL performed this procedure EECP on this patient. Addendum: 03/01/20 at 1141 by MARIA BALL [email or web address] Amended: Links added.
--- NOTE | 2020-03-01 11:40 | NUR ---
Signature Attestation Statement: I MARIA BALL performed this procedure EECP on this patient. Addendum: 03/01/20 at 1140 by MARIA BALL [email or web address] Amended: Links added.
[2020-03-01 12:31] VITALS: BP 113/66
--- NOTE | 2020-03-01 12:31 | NUR ---
Signature Attestation Statement: I MARIA BALL performed this procedure EECP on this patient. Addendum: 03/01/20 at 1231 by MARIA BALL [email or web address] Amended: Links added.
--- NOTE | 2020-03-01 12:32 | NUR ---
Signature Attestation Statement: I MARIA BALL performed this procedure EECP on this patient. Addendum: 03/01/20 at 1232 by MARIA BALL [email or web address] Amended: Links added.
== END | disposition home or self-care (01) ==
LOC: CHF HDHVI 11:13
PROVIDERS: ATTEND Internal Medicine Cardiovascular Disease
DX: I25.118 Atherosclerotic heart disease of native coronary artery with other forms of angina pectoris (principal); I73.9 Peripheral vascular disease, unspecified; E11.42 Type 2 diabetes mellitus with diabetic polyneuropathy; E11.319 Type 2 diabetes mellitus with unspecified diabetic retinopathy without macular edema; I10 Essential (primary) hypertension; E78.5 Hyperlipidemia, unspecified; R06.02 Shortness of breath; Z98.890 Other specified postprocedural states
CPT/HCPCS: G0166

== ENCOUNTER → 2020-03-02 | Outpatient (CLI) | payer MEDICARE ==
[2020-03-02 12:13] VITALS: BP 120/69
--- NOTE | 2020-03-02 12:13 | NUR ---
Signature Attestation Statement: I MARIA BALL performed this procedure EECP on this patient. Addendum: 03/02/20 at 1213 by MARIA BALL [email or web address] Amended: Links added.
--- NOTE | 2020-03-02 12:14 | NUR ---
Signature Attestation Statement: I MARIA BALL performed this procedure EECP on this patient. Addendum: 03/02/20 at 1214 by MRAIA BALL [email or web address] Amended: Links added.
--- NOTE | 2020-03-02 12:14 | NUR ---
Signature Attestation Statement: I MARIA BALL performed this procedure EECP on this patient. Addendum: 03/02/20 at 1214 by MARIA BALL [email or web address] Amended: Links added.
[2020-03-02 12:47] VITALS: BP 108/67
--- NOTE | 2020-03-02 12:47 | NUR ---
Signature Attestation Statement: I MARIA BALL performed this procedure EECP on this patient. Addendum: 03/02/20 at 1247 by MARIA BALL [email or web address] Amended: Links added.
--- NOTE | 2020-03-02 12:58 | NUR ---
Signature Attestation Statement: I MARIA BALL performed this procedure EECP on this patient. Addendum: 03/02/20 at 1259 by MARIA BALL [email or web address] Amended: Links added.
== END | disposition home or self-care (01) ==
LOC: CHF HDHVI 11:32
PROVIDERS: ATTEND Internal Medicine Cardiovascular Disease
DX: I25.118 Atherosclerotic heart disease of native coronary artery with other forms of angina pectoris (principal); I10 Essential (primary) hypertension; E78.5 Hyperlipidemia, unspecified; E11.319 Type 2 diabetes mellitus with unspecified diabetic retinopathy without macular edema; I73.9 Peripheral vascular disease, unspecified; E11.42 Type 2 diabetes mellitus with diabetic polyneuropathy; R06.02 Shortness of breath; Z98.890 Other specified postprocedural states
CPT/HCPCS: G0166

== ENCOUNTER → 2020-03-05 | Outpatient (CLI) | payer MEDICARE ==
[2020-03-05 11:59] VITALS: BP 122/71
--- NOTE | 2020-03-05 12:22 | NUR ---
Signature Attestation Statement: I MARIA BALL performed this procedure EECP on this patient. Addendum: 03/05/20 at 1222 by MARIA BALL [email or web address] Amended: Links added.
--- NOTE | 2020-03-05 12:22 | NUR ---
Signature Attestation Statement: I MARIA BALL performed this procedure EECP on this patient. Addendum: 03/05/20 at 1223 by MARIA BALL [email or web address] Amended: Links added.
--- NOTE | 2020-03-05 12:34 | NUR ---
Signature Attestation Statement: I MARIA BALL performed this procedure EECP on this patient. Addendum: 03/05/20 at 1235 by MARIA BALL [email or web address] Amended: Links added.
[2020-03-05 12:35] VITALS: BP 112/72
--- NOTE | 2020-03-05 12:47 | NUR ---
Signature Attestation Statement: I MARIA BALL performed this procedure EECP on this patient. Addendum: 03/05/20 at 1247 by MARIA BALL [email or web address] Amended: Links added.
== END | disposition home or self-care (01) ==
LOC: CHF HDHVI 11:16
PROVIDERS: ATTEND Internal Medicine Cardiovascular Disease
DX: I25.118 Atherosclerotic heart disease of native coronary artery with other forms of angina pectoris (principal); I73.9 Peripheral vascular disease, unspecified; E11.42 Type 2 diabetes mellitus with diabetic polyneuropathy; E11.319 Type 2 diabetes mellitus with unspecified diabetic retinopathy without macular edema; I10 Essential (primary) hypertension; E78.5 Hyperlipidemia, unspecified; R06.02 Shortness of breath; Z98.890 Other specified postprocedural states
CPT/HCPCS: G0166

== ENCOUNTER → 2020-03-06 | Outpatient (CLI) | payer MEDICARE ==
[2020-03-06 11:57] VITALS: BP 132/93
[2020-03-06 12:29] VITALS: BP 123/89
[2020-03-08 16:15] VITALS: BP 132/93
[2020-03-08 16:17] VITALS: BP 123/89
[2020-03-08 16:26] VITALS: BP 123/89
== END | disposition home or self-care (01) ==
LOC: CHF HDHVI 11:27
PROVIDERS: ATTEND Internal Medicine Cardiovascular Disease
DX: I25.118 Atherosclerotic heart disease of native coronary artery with other forms of angina pectoris (principal); I10 Essential (primary) hypertension; E78.5 Hyperlipidemia, unspecified; R06.02 Shortness of breath; E11.42 Type 2 diabetes mellitus with diabetic polyneuropathy; E11.319 Type 2 diabetes mellitus with unspecified diabetic retinopathy without macular edema; I73.9 Peripheral vascular disease, unspecified; Z98.890 Other specified postprocedural states
CPT/HCPCS: G0166

== ENCOUNTER → 2020-03-07 | Outpatient (CLI) | payer MEDICARE ==
[2020-03-07 11:56] VITALS: BP 108/63
[2020-03-07 12:29] VITALS: BP 115/66
== END | disposition home or self-care (01) ==
LOC: CHF HDHVI 11:25
PROVIDERS: ATTEND Internal Medicine Cardiovascular Disease
DX: I25.118 Atherosclerotic heart disease of native coronary artery with other forms of angina pectoris (principal); I73.9 Peripheral vascular disease, unspecified; E11.42 Type 2 diabetes mellitus with diabetic polyneuropathy; E11.319 Type 2 diabetes mellitus with unspecified diabetic retinopathy without macular edema; I10 Essential (primary) hypertension; E78.5 Hyperlipidemia, unspecified; R06.02 Shortness of breath; Z98.890 Other specified postprocedural states
CPT/HCPCS: G0166

== ENCOUNTER → 2020-03-08 | Outpatient (CLI) | payer MEDICARE ==
[2020-03-08 12:39] VITALS: BP 133/68
--- NOTE | 2020-03-08 12:40 | NUR ---
Signature Attestation Statement: I MARIA BALL performed this procedure EECP on this patient. Addendum: 03/08/20 at 1240 by MARIA BALL [email or web address] Amended: Links added.
--- NOTE | 2020-03-08 12:41 | NUR ---
Signature Attestation Statement: I MARIA BALL performed this procedure EECP on this patient. Addendum: 03/08/20 at 1241 by MARIA BALL [email or web address] Amended: Links added.
[2020-03-08 12:46] VITALS: BP 108/66
--- NOTE | 2020-03-08 12:46 | NUR ---
Signature Attestation Statement: I MARIA BALL performed this procedure EECP on this patient. Addendum: 03/08/20 at 1246 by MARIA BALL [email or web address] Amended: Links added.
--- NOTE | 2020-03-08 12:47 | NUR ---
Signature Attestation Statement: I MARIA BALL performed this procedure EECP on this patient. Addendum: 03/08/20 at 1247 by MARIA BALL [email or web address] Amended: Links added.
== END | disposition home or self-care (01) ==
LOC: CHF HDHVI 11:06
PROVIDERS: ATTEND Internal Medicine Cardiovascular Disease
DX: I25.118 Atherosclerotic heart disease of native coronary artery with other forms of angina pectoris (principal); R06.02 Shortness of breath; I10 Essential (primary) hypertension; E78.5 Hyperlipidemia, unspecified; E11.319 Type 2 diabetes mellitus with unspecified diabetic retinopathy without macular edema; E11.42 Type 2 diabetes mellitus with diabetic polyneuropathy; I73.9 Peripheral vascular disease, unspecified; Z98.890 Other specified postprocedural states
CPT/HCPCS: G0166

== ENCOUNTER → 2020-03-09 | Outpatient (CLI) | payer MEDICARE ==
[2020-03-09 11:58] VITALS: BP 116/65
--- NOTE | 2020-03-09 11:59 | NUR ---
Signature Attestation Statement: I MARIA BALL performed this procedure EECP on this patient. Addendum: 03/09/20 at 1200 by MARIA BALL [email or web address] Amended: Links added.
--- NOTE | 2020-03-09 11:59 | NUR ---
Signature Attestation Statement: I MARIA BALL performed this procedure EECP on this patient. Addendum: 03/09/20 at 1159 by MARIA BALL [email or web address] Amended: Links added.
[2020-03-09 12:40] VITALS: BP 110/61
--- NOTE | 2020-03-09 12:40 | NUR ---
Signature Attestation Statement: I MARIA BALL performed this procedure EECP on this patient. Addendum: 03/09/20 at 1240 by MARIA BALL [email or web address] Amended: Links added.
--- NOTE | 2020-03-09 12:48 | NUR ---
Signature Attestation Statement: I MARIA BALL performed this procedure EECP on this patient. Addendum: 03/09/20 at 1248 by MARIA BALL [email or web address] Amended: Links added.
== END | disposition home or self-care (01) ==
LOC: CHF HDHVI 11:25
PROVIDERS: ATTEND Internal Medicine Cardiovascular Disease
DX: I25.118 Atherosclerotic heart disease of native coronary artery with other forms of angina pectoris (principal); I10 Essential (primary) hypertension; E78.5 Hyperlipidemia, unspecified; R06.02 Shortness of breath; E11.319 Type 2 diabetes mellitus with unspecified diabetic retinopathy without macular edema; E11.42 Type 2 diabetes mellitus with diabetic polyneuropathy; I73.9 Peripheral vascular disease, unspecified; Z98.890 Other specified postprocedural states
CPT/HCPCS: G0166

== ENCOUNTER → 2020-03-12 | Outpatient (CLI) | payer MEDICARE ==
[2020-03-12 12:00] VITALS: BP 128/74
--- NOTE | 2020-03-12 12:01 | NUR ---
Signature Attestation Statement: I MARIA BALL performed this procedure EECP on this patient. Addendum: 03/12/20 at 1201 by MARIA BALL [email or web address] Amended: Links added.
--- NOTE | 2020-03-12 12:02 | NUR ---
Signature Attestation Statement: I MARIA BALL performed this procedure EECP on this patient. Addendum: 03/12/20 at 1202 by MARIA BALL [email or web address] Amended: Links added.
[2020-03-12 12:36] VITALS: BP 114/67
--- NOTE | 2020-03-12 12:36 | NUR ---
Signature Attestation Statement: I MARIA BALL performed this procedure EECP on this patient. Addendum: 03/12/20 at 1236 by MARIA BALL [email or web address] Amended: Links added.
--- NOTE | 2020-03-12 12:47 | NUR ---
Signature Attestation Statement: I MARIA BALL performed this procedure EECP on this patient. Addendum: 03/12/20 at 1247 by MARIA BALL [email or web address] Amended: Links added.
== END | disposition home or self-care (01) ==
LOC: CHF HDHVI 11:19
PROVIDERS: ATTEND Internal Medicine Cardiovascular Disease
DX: I25.118 Atherosclerotic heart disease of native coronary artery with other forms of angina pectoris (principal); I10 Essential (primary) hypertension; E78.5 Hyperlipidemia, unspecified; R06.02 Shortness of breath; E11.42 Type 2 diabetes mellitus with diabetic polyneuropathy; E11.319 Type 2 diabetes mellitus with unspecified diabetic retinopathy without macular edema; I73.9 Peripheral vascular disease, unspecified; Z98.890 Other specified postprocedural states
CPT/HCPCS: G0166

== ENCOUNTER → 2020-03-13 | Outpatient (CLI) | payer MEDICARE ==
[2020-03-13 12:06] VITALS: BP 111/66
[2020-03-13 12:42] VITALS: BP 110/63
== END | disposition home or self-care (01) ==
LOC: CHF HDHVI 11:33
PROVIDERS: ATTEND Internal Medicine Cardiovascular Disease
DX: I25.118 Atherosclerotic heart disease of native coronary artery with other forms of angina pectoris (principal); I10 Essential (primary) hypertension; E78.5 Hyperlipidemia, unspecified; R06.02 Shortness of breath; E11.42 Type 2 diabetes mellitus with diabetic polyneuropathy; E11.319 Type 2 diabetes mellitus with unspecified diabetic retinopathy without macular edema; I73.9 Peripheral vascular disease, unspecified; Z98.890 Other specified postprocedural states
CPT/HCPCS: G0166

== ENCOUNTER → 2020-03-14 | Outpatient (CLI) | payer MEDICARE ==
[2020-03-14 12:02] VITALS: BP 122/62
[2020-03-14 12:42] VITALS: BP 114/65
== END | disposition home or self-care (01) ==
LOC: CHF HDHVI 11:30
PROVIDERS: ATTEND Internal Medicine Cardiovascular Disease
DX: I25.118 Atherosclerotic heart disease of native coronary artery with other forms of angina pectoris (principal); I10 Essential (primary) hypertension; E78.5 Hyperlipidemia, unspecified; R06.02 Shortness of breath; I73.9 Peripheral vascular disease, unspecified; E11.42 Type 2 diabetes mellitus with diabetic polyneuropathy; E11.319 Type 2 diabetes mellitus with unspecified diabetic retinopathy without macular edema; Z98.890 Other specified postprocedural states
CPT/HCPCS: G0166

== ENCOUNTER → 2020-03-15 | Outpatient (CLI) | payer MEDICARE ==
[2020-03-15 12:09] VITALS: BP 130/68
[2020-03-15 12:37] VITALS: BP 121/68
== END | disposition home or self-care (01) ==
LOC: CHF HDHVI 11:30
PROVIDERS: ATTEND Internal Medicine Cardiovascular Disease
DX: I25.118 Atherosclerotic heart disease of native coronary artery with other forms of angina pectoris (principal); I10 Essential (primary) hypertension; E78.5 Hyperlipidemia, unspecified; R06.02 Shortness of breath; E11.42 Type 2 diabetes mellitus with diabetic polyneuropathy; E11.319 Type 2 diabetes mellitus with unspecified diabetic retinopathy without macular edema; I73.9 Peripheral vascular disease, unspecified; Z98.890 Other specified postprocedural states
CPT/HCPCS: G0166

== ENCOUNTER → 2020-03-16 | Outpatient (CLI) | payer MEDICARE ==
[2020-03-16 11:58] VITALS: BP 127/69
[2020-03-16 12:30] VITALS: BP 129/72
== END | disposition home or self-care (01) ==
LOC: CHF HDHVI 11:26
PROVIDERS: ATTEND Internal Medicine Cardiovascular Disease
DX: I25.118 Atherosclerotic heart disease of native coronary artery with other forms of angina pectoris (principal); I10 Essential (primary) hypertension; E78.5 Hyperlipidemia, unspecified; R06.02 Shortness of breath; E11.42 Type 2 diabetes mellitus with diabetic polyneuropathy; I73.9 Peripheral vascular disease, unspecified; E11.319 Type 2 diabetes mellitus with unspecified diabetic retinopathy without macular edema; Z98.890 Other specified postprocedural states
CPT/HCPCS: G0166

== ENCOUNTER → 2020-03-19 | Outpatient (CLI) | payer MEDICARE ==
[2020-03-19 12:04] VITALS: BP 136/69
--- NOTE | 2020-03-19 12:05 | NUR ---
Signature Attestation Statement: I MARIA BALL performed this procedure EECP on this patient. Addendum: 03/19/20 at 1205 by MARIA BALL [email or web address] Amended: Links added.
--- NOTE | 2020-03-19 12:05 | NUR ---
Signature Attestation Statement: I MARIA BALL performed this procedure EECP on this patient. Addendum: 03/19/20 at 1206 by MARIA BALL [email or web address] Amended: Links added.
--- NOTE | 2020-03-19 12:06 | NUR ---
Signature Attestation Statement: I MARIA BALL performed this procedure EECP on this patient. Addendum: 03/19/20 at 1207 by MARIA BALL [email or web address] Amended: Links added.
[2020-03-19 12:39] VITALS: BP 131/78
--- NOTE | 2020-03-19 12:39 | NUR ---
Signature Attestation Statement: I MARIA BALL performed this procedure EECP on this patient. Addendum: 03/19/20 at 1239 by MARIA BALL [email or web address] Amended: Links added.
--- NOTE | 2020-03-19 12:52 | NUR ---
Signature Attestation Statement: I MARIA BALL performed this procedure EECP on this patient. Addendum: 03/19/20 at 1253 by MARIA BALL [email or web address] Amended: Links added.
== END | disposition home or self-care (01) ==
LOC: CHF HDHVI 11:40
PROVIDERS: ATTEND Internal Medicine Cardiovascular Disease
DX: I25.118 Atherosclerotic heart disease of native coronary artery with other forms of angina pectoris (principal); I10 Essential (primary) hypertension; E78.5 Hyperlipidemia, unspecified; E11.42 Type 2 diabetes mellitus with diabetic polyneuropathy; E11.319 Type 2 diabetes mellitus with unspecified diabetic retinopathy without macular edema; I73.9 Peripheral vascular disease, unspecified; R06.02 Shortness of breath; Z98.890 Other specified postprocedural states
CPT/HCPCS: G0166

== ENCOUNTER → 2020-03-20 | Outpatient (CLI) | payer MEDICARE ==
[2020-03-20 12:06] VITALS: BP 115/67
--- NOTE | 2020-03-20 12:07 | NUR ---
Signature Attestation Statement: I MARIA BALL performed this procedure EECP on this patient. Addendum: 03/20/20 at 1208 by MARIA BALL [email or web address] Amended: Links added.
--- NOTE | 2020-03-20 12:07 | NUR ---
Signature Attestation Statement: I MARIA BALL performed this procedure EECP on this patient. Addendum: 03/20/20 at 1207 by MARIA BALL [email or web address] Amended: Links added.
--- NOTE | 2020-03-20 12:08 | NUR ---
Signature Attestation Statement: I MARIA BALL performed this procedure EECP on this patient. Addendum: 03/20/20 at 1209 by MARIA BALL [email or web address] Amended: Links added.
--- NOTE | 2020-03-20 12:39 | NUR ---
Signature Attestation Statement: I MARIA BALL performed this procedure EECP on this patient. Addendum: 03/20/20 at 1239 by MARIA BALL [email or web address] Amended: Links added.
[2020-03-20 12:40] VITALS: BP 104/64
--- NOTE | 2020-03-20 12:54 | NUR ---
Signature Attestation Statement: I MARIA BALL performed this procedure EECP on this patient. Addendum: 03/20/20 at 1255 by MARIA BALL [email or web address] Amended: Links added.
== END | disposition home or self-care (01) ==
LOC: CHF HDHVI 11:30
PROVIDERS: ATTEND Internal Medicine Cardiovascular Disease
DX: I25.118 Atherosclerotic heart disease of native coronary artery with other forms of angina pectoris (principal); E78.5 Hyperlipidemia, unspecified; R06.02 Shortness of breath; E11.42 Type 2 diabetes mellitus with diabetic polyneuropathy; E11.319 Type 2 diabetes mellitus with unspecified diabetic retinopathy without macular edema; I10 Essential (primary) hypertension; I73.9 Peripheral vascular disease, unspecified; Z98.890 Other specified postprocedural states
CPT/HCPCS: G0166

== ENCOUNTER → 2020-04-30 | Outpatient (CLI) | payer MEDICARE ==
[2020-04-30 16:13] LABS: Urine Blood Negative /uL (Negative); Urine Specific Gravity 1.032 (1.001-1.035)
== END | disposition home or self-care (01) ==
LOC: CHF HDHVI 12:34
PROVIDERS: ATTEND Internal Medicine
DX: N39.0 Urinary tract infection, site not specified (principal)
CPT/HCPCS: 81003; 87086; 87088; 87186

== ENCOUNTER → 2020-05-18 | Outpatient (CLI) | payer MEDICARE ==
[2020-05-18 12:08] LABS: Basophils # (auto) 0 10 ^3/uL (0-0.2); Basophils % (auto) 0.5 % (0.0-2.0); Eosinophils # (auto) 0.2 10 ^3/uL (0-0.8); Eosinophils % (auto) 2.8 % (0.0-7.0); Hematocrit 42.8 % (36.0-46.0); Hemoglobin 14.2 g/dL (12.2-16.2); Lymphocytes # (auto) 2.3 10 ^3/uL (0.4-5.4); Lymphocytes % (auto) 30.8 % (10.0-50.0); Mean Corpuscular Hemoglobin 32.4 pg (28.0-32.0); Mean Corpuscular Hgb Conc. 33.1 g/dL (32.0-36.0); Mean Corpuscular Volume 97.9 fL (80.0-100.0); Monocytes # (auto) 0.5 10 ^3/uL (0-1.3); Monocytes % (auto) 6.6 % (0.0-12.0); Neutrophils # (auto) 4.5 10 ^3/uL (1.6-8.6); Neutrophils % (auto) 59.3 % (37.0-80.0); Platelet Count (auto) 228 10^3/uL (140-450); Red Blood Cells 4.37 10^6/uL (4.0-5.20); White Blood Cell 7.6 10^3/uL (4.4-10.8)
[2020-05-18 12:10] LABS: Urine Blood Negative /uL (Negative); Urine Specific Gravity 1.027 (1.001-1.035)
[2020-05-18 12:26] LABS: Potassium 3.7 mmol/L (3.5-5.1)
[2020-05-18 12:39] LABS: Free T4 (Free Thyroxine) 0.99 ng/dL (0.89-1.76)
[2020-05-18 12:46] LABS: Albumin 3.8 g/dL (3.4-5.0); BUN/Creatinine Ratio 32.7; Bilirubin, Total 0.3 mg/dL (0.2-1.0); Calcium 10.6 mg/dL (8.5-10.1); Uric Acid 3.4 mg/dL (2.6-6.0)
== END | disposition home or self-care (01) ==
LOC: LAB 08:41
PROVIDERS: ATTEND Internal Medicine Cardiovascular Disease
DX: D51.3 Other dietary vitamin B12 deficiency anemia (principal); D64.9 Anemia, unspecified; E11.9 Type 2 diabetes mellitus without complications; E55.9 Vitamin D deficiency, unspecified; I10 Essential (primary) hypertension; R00.2 Palpitations; R53.1 Weakness; R30.0 Dysuria; M10.9 Gout, unspecified
CPT/HCPCS: 36415; 80053; 80061; 81003; 82306; 82607; 83036; 84439; 84443; 84550; 85025; 87086

== ENCOUNTER → 2021-03-15 | Outpatient (CLI) | payer MEDICARE ==
[2021-03-15 09:50] VITALS: BP 100/57
[2021-03-15 10:29] VITALS: BP 100/54
[2021-03-15 15:20] LABS: Urine Blood Negative /uL (Negative); Urine Specific Gravity 1.026 (1.001-1.035)
== END | disposition home or self-care (01) ==
LOC: CHF HDHVI 09:06
PROVIDERS: ATTEND Internal Medicine Cardiovascular Disease
DX: I25.758 Atherosclerosis of native coronary artery of transplanted heart with other forms of angina pectoris (principal); I50.43 Acute on chronic combined systolic (congestive) and diastolic (congestive) heart failure; N39.0 Urinary tract infection, site not specified; I63.9 Cerebral infarction, unspecified; R07.89 Other chest pain; E11.42 Type 2 diabetes mellitus with diabetic polyneuropathy; E11.21 Type 2 diabetes mellitus with diabetic nephropathy; R06.02 Shortness of breath; I73.9 Peripheral vascular disease, unspecified
CPT/HCPCS: 81003; 87086; 87088; 87186; G0166

== ENCOUNTER → 2021-03-18 | Outpatient (CLI) | payer MEDICARE ==
[2021-03-18 09:51] VITALS: BP 110/63
[2021-03-18 10:26] VITALS: BP 111/66
== END | disposition home or self-care (01) ==
LOC: CHF HDHVI 09:03
PROVIDERS: ATTEND Internal Medicine Cardiovascular Disease
DX: I25.758 Atherosclerosis of native coronary artery of transplanted heart with other forms of angina pectoris (principal); I50.43 Acute on chronic combined systolic (congestive) and diastolic (congestive) heart failure; E11.42 Type 2 diabetes mellitus with diabetic polyneuropathy; R07.89 Other chest pain; I63.9 Cerebral infarction, unspecified; I73.9 Peripheral vascular disease, unspecified; R06.02 Shortness of breath; E11.21 Type 2 diabetes mellitus with diabetic nephropathy
CPT/HCPCS: G0166

== ENCOUNTER → 2021-03-19 | Outpatient (CLI) | payer MEDICARE ==
[2021-03-19 12:33] VITALS: BP 125/71
[2021-03-19 12:39] VITALS: BP 120/67
== END | disposition home or self-care (01) ==
LOC: CHF HDHVI 11:02
PROVIDERS: ATTEND Internal Medicine Cardiovascular Disease
DX: I25.758 Atherosclerosis of native coronary artery of transplanted heart with other forms of angina pectoris (principal); I50.43 Acute on chronic combined systolic (congestive) and diastolic (congestive) heart failure; E11.42 Type 2 diabetes mellitus with diabetic polyneuropathy; E11.21 Type 2 diabetes mellitus with diabetic nephropathy; R07.89 Other chest pain; R06.02 Shortness of breath; I63.9 Cerebral infarction, unspecified; I73.9 Peripheral vascular disease, unspecified
CPT/HCPCS: G0166

== ENCOUNTER → 2021-03-20 | Outpatient (CLI) | payer MEDICARE ==
[2021-03-20 11:43] VITALS: BP 121/74
[2021-03-20 12:16] VITALS: BP 128/60
== END | disposition home or self-care (01) ==
LOC: CHF HDHVI 11:11
PROVIDERS: ATTEND Internal Medicine Cardiovascular Disease
DX: I25.758 Atherosclerosis of native coronary artery of transplanted heart with other forms of angina pectoris (principal); I50.43 Acute on chronic combined systolic (congestive) and diastolic (congestive) heart failure; E11.42 Type 2 diabetes mellitus with diabetic polyneuropathy; E11.21 Type 2 diabetes mellitus with diabetic nephropathy; I63.9 Cerebral infarction, unspecified; I73.9 Peripheral vascular disease, unspecified; R07.89 Other chest pain
CPT/HCPCS: G0166

== ENCOUNTER → 2021-03-21 | Outpatient (CLI) | payer MEDICARE ==
[2021-03-21 11:46] VITALS: BP 145/76
[2021-03-21 12:16] VITALS: BP 128/83
== END | disposition home or self-care (01) ==
LOC: CHF HDHVI 11:07
PROVIDERS: ATTEND Internal Medicine Cardiovascular Disease
DX: I25.758 Atherosclerosis of native coronary artery of transplanted heart with other forms of angina pectoris (principal); I50.43 Acute on chronic combined systolic (congestive) and diastolic (congestive) heart failure; E11.21 Type 2 diabetes mellitus with diabetic nephropathy; E11.42 Type 2 diabetes mellitus with diabetic polyneuropathy; I73.9 Peripheral vascular disease, unspecified; I63.9 Cerebral infarction, unspecified; R06.02 Shortness of breath; R07.89 Other chest pain
CPT/HCPCS: G0166

== ENCOUNTER → 2021-03-22 | Outpatient (CLI) | payer MEDICARE ==
[2021-03-22 11:56] VITALS: BP 118/59
[2021-03-22 12:28] VITALS: BP 103/62
== END | disposition home or self-care (01) ==
LOC: CHF HDHVI 11:03
PROVIDERS: ATTEND Internal Medicine Cardiovascular Disease
DX: I25.758 Atherosclerosis of native coronary artery of transplanted heart with other forms of angina pectoris (principal); I50.43 Acute on chronic combined systolic (congestive) and diastolic (congestive) heart failure; E11.21 Type 2 diabetes mellitus with diabetic nephropathy; E11.42 Type 2 diabetes mellitus with diabetic polyneuropathy; I63.9 Cerebral infarction, unspecified; I73.9 Peripheral vascular disease, unspecified; R06.02 Shortness of breath; R07.89 Other chest pain
CPT/HCPCS: G0166

== ENCOUNTER → 2021-03-25 | Outpatient (CLI) | payer MEDICARE ==
[2021-03-25 11:39] VITALS: BP 107/62
[2021-03-25 12:20] VITALS: BP 107/56
== END | disposition home or self-care (01) ==
LOC: CHF HDHVI 11:04
PROVIDERS: ATTEND Internal Medicine Cardiovascular Disease
DX: I25.758 Atherosclerosis of native coronary artery of transplanted heart with other forms of angina pectoris (principal); I50.43 Acute on chronic combined systolic (congestive) and diastolic (congestive) heart failure; R07.89 Other chest pain; R06.02 Shortness of breath; E11.21 Type 2 diabetes mellitus with diabetic nephropathy; E11.42 Type 2 diabetes mellitus with diabetic polyneuropathy; I63.9 Cerebral infarction, unspecified; I73.9 Peripheral vascular disease, unspecified
CPT/HCPCS: G0166

== ENCOUNTER → 2021-03-29 | Outpatient (CLI) | payer MEDICARE ==
[2021-03-29 12:37] VITALS: BP 105/60
[2021-03-29 12:43] VITALS: BP 105/57
== END | disposition home or self-care (01) ==
LOC: CHF HDHVI 11:04
PROVIDERS: ATTEND Internal Medicine Cardiovascular Disease
DX: I25.758 Atherosclerosis of native coronary artery of transplanted heart with other forms of angina pectoris (principal); I50.43 Acute on chronic combined systolic (congestive) and diastolic (congestive) heart failure; E11.21 Type 2 diabetes mellitus with diabetic nephropathy; E11.42 Type 2 diabetes mellitus with diabetic polyneuropathy; R06.02 Shortness of breath; R07.89 Other chest pain; I63.9 Cerebral infarction, unspecified; I73.9 Peripheral vascular disease, unspecified
CPT/HCPCS: G0166

== ENCOUNTER → 2021-04-01 | Outpatient (CLI) | payer MEDICARE ==
[2021-04-01 12:28] VITALS: BP 135/68
[2021-04-01 12:46] VITALS: BP 122/70
== END | disposition home or self-care (01) ==
LOC: CHF HDHVI 11:07
PROVIDERS: ATTEND Internal Medicine Cardiovascular Disease
DX: I25.758 Atherosclerosis of native coronary artery of transplanted heart with other forms of angina pectoris (principal); I50.43 Acute on chronic combined systolic (congestive) and diastolic (congestive) heart failure
CPT/HCPCS: G0166

== ENCOUNTER → 2021-05-06 | Outpatient (CLI) | payer MEDICARE ==
[2021-05-06 12:28] VITALS: BP 130/64
[2021-05-06 12:34] VITALS: BP 114/69
== END | disposition home or self-care (01) ==
LOC: CHF HDHVI 11:02
PROVIDERS: ATTEND Internal Medicine Cardiovascular Disease
DX: I25.758 Atherosclerosis of native coronary artery of transplanted heart with other forms of angina pectoris (principal); I50.43 Acute on chronic combined systolic (congestive) and diastolic (congestive) heart failure; E11.21 Type 2 diabetes mellitus with diabetic nephropathy; E11.42 Type 2 diabetes mellitus with diabetic polyneuropathy; I63.9 Cerebral infarction, unspecified; I73.9 Peripheral vascular disease, unspecified; R07.89 Other chest pain; R06.02 Shortness of breath
CPT/HCPCS: G0166

== ENCOUNTER → 2021-05-08 | Outpatient (CLI) | payer MEDICARE ==
[2021-05-08 12:08] VITALS: BP 129/66
[2021-05-08 12:18] VITALS: BP 135/67
== END | disposition home or self-care (01) ==
LOC: CHF HDHVI 11:04
PROVIDERS: ATTEND Internal Medicine Cardiovascular Disease
DX: I25.758 Atherosclerosis of native coronary artery of transplanted heart with other forms of angina pectoris (principal); I50.43 Acute on chronic combined systolic (congestive) and diastolic (congestive) heart failure; R07.89 Other chest pain; I63.9 Cerebral infarction, unspecified; I73.9 Peripheral vascular disease, unspecified; R06.02 Shortness of breath; E11.21 Type 2 diabetes mellitus with diabetic nephropathy; E11.42 Type 2 diabetes mellitus with diabetic polyneuropathy
CPT/HCPCS: G0166

== ENCOUNTER → 2021-05-13 | Outpatient (CLI) | payer MEDICARE ==
[2021-05-13 12:09] VITALS: BP 113/67
[2021-05-13 12:15] VITALS: BP 128/65
== END | disposition home or self-care (01) ==
LOC: CHF HDHVI 11:11
PROVIDERS: ATTEND Internal Medicine Cardiovascular Disease
DX: I25.758 Atherosclerosis of native coronary artery of transplanted heart with other forms of angina pectoris (principal); I50.43 Acute on chronic combined systolic (congestive) and diastolic (congestive) heart failure; R07.89 Other chest pain; E11.42 Type 2 diabetes mellitus with diabetic polyneuropathy; E11.21 Type 2 diabetes mellitus with diabetic nephropathy; R06.02 Shortness of breath; I73.9 Peripheral vascular disease, unspecified; I63.9 Cerebral infarction, unspecified
CPT/HCPCS: G0166

== ENCOUNTER → 2021-05-15 | Outpatient (CLI) | payer MEDICARE ==
[2021-05-15 15:13] VITALS: BP 131/70
[2021-05-15 15:19] VITALS: BP 111/79
== END | disposition home or self-care (01) ==
LOC: CHF HDHVI 11:03
PROVIDERS: ATTEND Internal Medicine Cardiovascular Disease
DX: I25.758 Atherosclerosis of native coronary artery of transplanted heart with other forms of angina pectoris (principal); I50.43 Acute on chronic combined systolic (congestive) and diastolic (congestive) heart failure; E11.21 Type 2 diabetes mellitus with diabetic nephropathy; E11.42 Type 2 diabetes mellitus with diabetic polyneuropathy; R07.89 Other chest pain; I63.9 Cerebral infarction, unspecified; R06.02 Shortness of breath; I73.9 Peripheral vascular disease, unspecified
CPT/HCPCS: G0166

== ENCOUNTER → 2021-08-26 | Outpatient (CLI) | payer MEDICARE | END | disposition home or self-care (01) | LOC: LAB 13:28 | PROVIDERS: ATTEND Internal Medicine Cardiovascular Disease | DX: R94.4 Abnormal results of kidney function studies (principal) | CPT/HCPCS: 36415; 82565; 84520 ==

== ENCOUNTER → 2021-08-27 | Outpatient (CLI) | payer MEDICARE ==
[~2021-08-27] MED LIST changes: +IOHEXOL 350 MG/ML 100ML IJ ONE
[2021-08-27 09:15] VITALS: BP 126/60
[2021-08-27 09:43] VITALS: BP 122/53
== END | disposition home or self-care (01) ==
LOC: Rad HDHVI 09:12
PROVIDERS: ATTEND Internal Medicine Cardiovascular Disease
DX: R07.9 Chest pain, unspecified (principal); E04.2 Nontoxic multinodular goiter; K76.0 Fatty (change of) liver, not elsewhere classified
CPT/HCPCS: 71275; G0463; Q9967

== ENCOUNTER → 2021-09-05 | Outpatient (CLI) | payer MEDICARE ==
[~2021-09-05] MED LIST changes: -IOHEXOL 350 MG/ML 100ML IJ ONE
== END | disposition home or self-care (01) ==
LOC: Rad HDHVI 09:02
PROVIDERS: ATTEND Internal Medicine Cardiovascular Disease
DX: I08.1 Rheumatic disorders of both mitral and tricuspid valves (principal); R00.2 Palpitations; R06.02 Shortness of breath
CPT/HCPCS: 93306

== ENCOUNTER → 2021-09-12 | Outpatient (CLI) | payer MEDICARE ==
[~2021-09-12] VITALS: Ht 165.1 cm; Wt 78.0 kg
== END | disposition home or self-care (01) ==
LOC: Rad HDHVI 09:15
PROVIDERS: ATTEND Internal Medicine Cardiovascular Disease
DX: I25.5 Ischemic cardiomyopathy (principal); I10 Essential (primary) hypertension; I73.9 Peripheral vascular disease, unspecified
CPT/HCPCS: 78452; 93017; 96374; A9500

== ENCOUNTER → 2022-05-02 | Outpatient (CLI) | payer MEDICARE | END | disposition home or self-care (01) | LOC: LAB 10:18 | PROVIDERS: ATTEND Internal Medicine | DX: N39.0 Urinary tract infection, site not specified (principal) | CPT/HCPCS: 87086 ==

== ENCOUNTER → 2022-06-18 | Outpatient (CLI) | payer MEDICARE | END | disposition home or self-care (01) | LOC: Rad HDHVI 12:12 | PROVIDERS: ATTEND Internal Medicine Cardiovascular Disease | DX: M16.11 Unilateral primary osteoarthritis, right hip (principal); M47.816 Spondylosis without myelopathy or radiculopathy, lumbar region; M51.36 Other intervertebral disc degeneration, lumbar region; K57.30 Diverticulosis of large intestine without perforation or abscess without bleeding; M25.851 Other specified joint disorders, right hip; M25.551 Pain in right hip | CPT/HCPCS: 72131; 73700 ==

== ENCOUNTER → 2023-07-15 | Outpatient (CLI) | payer MEDICARE ==
[~2023-07-15] MED LIST changes: -LISI40TA11 PO; +LISI40TA16 PO
== END | disposition home or self-care (01) ==
LOC: Rad HDHVI 08:03
PROVIDERS: ATTEND Internal Medicine Cardiovascular Disease
DX: I10 Essential (primary) hypertension (principal); E78.5 Hyperlipidemia, unspecified
CPT/HCPCS: 93306

== ENCOUNTER → 2023-07-17 | Outpatient (CLI) | payer MEDICARE ==
[~2023-07-17] VITALS: Ht 165.1 cm; Wt 73.9 kg
== END | disposition home or self-care (01) ==
LOC: Rad HDHVI 09:31
PROVIDERS: ATTEND Internal Medicine Cardiovascular Disease
DX: I10 Essential (primary) hypertension (principal); E11.9 Type 2 diabetes mellitus without complications; E78.00 Pure hypercholesterolemia, unspecified; Z82.49 Family history of ischemic heart disease and other diseases of the circulatory system; Z79.84 Long term (current) use of oral hypoglycemic drugs; Z79.899 Other long term (current) drug therapy
CPT/HCPCS: 78452; 93017; 96374; A9500

== ENCOUNTER 2023-07-22 12:41 | Inpatient (IN) | payer MEDICARE ==
[~2023-07-22] VITALS: Ht 165.1 cm; Wt 76.4 kg
[2023-07-22 13:20] VITALS: PULSE 80; RESP 15; O2SAT 97
[2023-07-22 13:53] LABS: Basophils # (auto) 0 10 ^3/uL (0-0.2); Basophils % (auto) 0.4 % (0.0-2.0); Eosinophils # (auto) 0.1 10 ^3/uL (0-0.8); Lymphocytes % (auto) 28.7 % (10.0-50.0); Mean Corpuscular Hemoglobin 31.1 pg (28.0-32.0); Mean Corpuscular Hgb Conc. 33.3 g/dL (32.0-36.0); Mean Corpuscular Volume 93.4 fL (80.0-100.0); Monocytes # (auto) 0.7 10 ^3/uL (0-1.3); Monocytes % (auto) 6.6 % (0.0-12.0); Neutrophils # (auto) 6.6 10 ^3/uL (1.6-8.6); Neutrophils % (auto) 63.3 % (37.0-80.0); Nucleated Red Blood Cells % 0.1 %; Red Blood Cells 5.14 10^6/uL (4.0-5.20); Red Cell Distribution Width 13.7 % (11.8-14.3); White Blood Cell 10.5 10^3/uL (4.4-10.8)
[2023-07-22 14:03] LABS: Alanine Aminotransferase 40 U/L (7-40); Albumin 4.8 g/dL (3.2-4.8); Alkaline Phosphatase 59 U/L (46-116); Anion Gap 14 (5-15); Aspartate Aminotransferase 29 U/L (13-40); BUN/Creatinine Ratio 25.5 (10.0-20.0); Bilirubin, Total 0.8 mg/dL (0.2-1.0); Blood Urea Nitrogen 28 mg/dL (9-23); Calcium 12.3 mg/dL (8.5-10.1); Carbon Dioxide 20 mmol/L (20-30); Chloride 104 mmol/L (98-107); Glucose 192 mg/dL (74-106); Sodium 138 mmol/L (136-145); Total Protein 7.1 g/dL (5.7-8.2)
[2023-07-22] MEDS: POTASSIUM CHL 20MEQ/100ML 100 ML IV ONE (15:55)
[2023-07-22] MEDS: POTASSIUM CHL 20 Meq TABLET PO ONE (15:55)
[2023-07-22] MEDS: IOHEXOL 350 MG/ML 100ML IJ ONE (18:19)
[2023-07-22] MEDS ORDERED: ONDANSETRON HCL 4 MG/2 ML VIAL IV PRN (22:15)
[2023-07-22] MEDS ORDERED: ACETAMINOPHEN 325 MG TAB PO PRN (22:15)
[2023-07-22] MEDS ORDERED: DEXTROSE (50%) 50ML SYRG IV PRN (22:15)
[2023-07-22] MEDS ORDERED: NITROGLYCERIN 0.4 MG SL TAB SL PRN (22:15)
[2023-07-22] MEDS ORDERED: ALBUTEROL SULF 2.5 MG/0.5ML(0.5%) NEB SOLN NEB PRN (22:15)
[2023-07-22] MEDS ORDERED: MORPHINE SULFATE INJ 2 MG/ml SYRG IV PRN (22:15)
[2023-07-22 22:41] VITALS: O2SAT 94
[2023-07-22 22:50] VITALS: BP 118/83; PULSE 88; RESP 20; TEMP 97.5; O2SAT 94
[2023-07-23] VITALS (8 sets, daily range): BP systolic 100–132; BP diastolic 49–58; PULSE 57–76; RESP 16–18; TEMP 97.5–98; O2SAT 96–98
[2023-07-23] MEDS: ACCU-CHEK COMFORT CURVE STRIP VI SCH
[2023-07-23] MEDS: InsuLIN REG 1unit/0.01ml Soln (100units/ml) SC SCH (01:35)
[2023-07-23 06:56] LABS: Alanine Aminotransferase 30 U/L (7-40); Albumin 4.2 g/dL (3.2-4.8); Alkaline Phosphatase 48 U/L (46-116); Anion Gap 8 (5-15); Aspartate Aminotransferase 19 U/L (13-40); BUN/Creatinine Ratio 22.3 (10.0-20.0); Blood Urea Nitrogen 23 mg/dL (9-23); Calcium 11.2 mg/dL (8.5-10.1); Carbon Dioxide 23 mmol/L (20-30); Chloride 108 mmol/L (98-107); Glucose 144 mg/dL (74-106); Potassium 3.4 mmol/L (3.5-5.1); Sodium 139 mmol/L (136-145)
[2023-07-23 06:57] LABS: Bilirubin, Total 0.7 mg/dL (0.2-1.0); Total Protein 6.4 g/dL (5.7-8.2)
[2023-07-23] MEDS: EMPAGLIFLOZIN 10 MG TAB PO SCH (10:46)
[2023-07-23] MEDS: CLOPIDOGREL BISULFATE 75 MG TAB PO SCH (10:46)
[2023-07-23] MEDS: LISINOPRIL 10 MG TAB PO SCH (10:46)
[2023-07-23] MEDS: ENOXAPARIN SOD 40 MG/0.4 ML SYRINGE SC SCH (10:47)
[2023-07-23] MEDS ORDERED: EMPA1TAB3 PO (10:50)
[2023-07-23] MEDS ORDERED: SEMA2INJ3 SC (10:50)
[2023-07-23] MEDS ORDERED: ATOR10TA52 PO (10:50)
[2023-07-23] MEDS ORDERED: LEVO500T91 PO (10:50)
[2023-07-23] MEDS ORDERED: INSLANTI SC (10:50)
[2023-07-23] MEDS ORDERED: SODI1SOL PO (10:50)
[2023-07-23] MEDS ORDERED: ALLO300T2 PO (12:56)
[2023-07-23] MEDS: POTASSIUM EFFERVESENT TAB 25 MEQ PO ONE (17:23)
[2023-07-23] MEDS: ATORVASTATIN 20 MG TAB PO SCH (21:17)
[2023-07-23 22:29] LABS: Urine Bacteria FEW /hpf (None Seen); Urine Blood Negative /uL (Negative); Urine Clarity Clear (Clear); Urine Color Colorless (Yellow); Urine Protein, UAD Negative (Negative); Urine Specific Gravity 1.018 (1.001-1.035); Urine Urobilinogen Normal (Negative); Urine WBC 32 /hpf (0 - 5); Urine pH 5.5 (5.0-8.0)
[2023-07-24 00:53] VITALS: O2SAT 97
[2023-07-24 05:00] VITALS: BP 101/57; PULSE 57; RESP 18; TEMP 97.4; O2SAT 98
[2023-07-24 08:30] VITALS: PULSE 52
[2023-07-24 09:00] VITALS: BP_SYST 101; BP_SYST 104; BP_DIAS 50; BP_DIAS 54; PULSE 68; PULSE 74; RESP 18; TEMP 97.9; TEMP 98.2; O2SAT 97; O2SAT 98
[2023-07-24 09:30] VITALS: O2SAT 97
[2023-07-24 10:30] VITALS: O2SAT 98
[2023-07-24 10:46] LABS: Partial Thromboplastin Time 28.7 SEC (24.5-34.5); Prothrombin Time 10.5 sec (9.3-11.8)
[2023-07-27 09:14] LABS: Hepatitis B Surface Antigen Negative (Negative)
[2023-07-27 09:36] LABS: Hepatitis C Antibody Negative (Negative)
== END 2023-07-24 17:00 | disposition home or self-care (01) | DRG 206 ==
LOC: ER 12:41 → TELE 22:21 → TELE-WESTW 07-23 09:12
PROVIDERS: ADMIT Nurse Practitioner; ATTEND Internal Medicine Cardiovascular Disease
DX: M94.0 Chondrocostal junction syndrome [Tietze] (principal); R07.89 Other chest pain; R06.03 Acute respiratory distress; I10 Essential (primary) hypertension; E87.6 Hypokalemia; E78.5 Hyperlipidemia, unspecified; E11.9 Type 2 diabetes mellitus without complications; Z86.16 Personal history of COVID-19; Z83.3 Family history of diabetes mellitus; Z90.710 Acquired absence of both cervix and uterus
CPT/HCPCS: 36415; 70450; 71045; 71275; 80053; 81001; 82962; 83880; 84484; 85025; 85379; 85610; 85730; 86803; 87340; 93005; 96365; 99291; G0378; J1815; J3480

== ENCOUNTER 2023-07-30 11:07 | Day surgery (SDC) | payer MEDICARE ==
[~2023-07-30] VITALS: Ht 165.1 cm; Wt 71.7 kg
[~2023-07-30 11:07] MED LIST changes: +ALLO300T2 PO; +ATOR10TA52 PO; -CLOP75TA28 PO; +EMPA1TAB3 PO; -METF-370 PO; +SEMA2INJ3 SC; +SODI1SOL PO
[2023-07-30] MEDS ORDERED: [UNRECOGNIZED DRUG - CODE] PO (13:11)
[2023-07-30] MEDS ORDERED: IOHEXOL 350 MG/ML 100ML IJ ONE (15:26)
[2023-07-30] MEDS ORDERED: LIDOCAINE 2%HCL (LOCAL ANESTH.) INJ 20ML MDV ONE (15:26)
[2023-07-30] MEDS ORDERED: ANGIOMAX 250 MG VIAL IV ONE (15:32)
[2023-07-30] MEDS ORDERED: fentaNYL CITRATE 100 MCG/2 ML VL ONE (15:32)
[2023-07-30] MEDS ORDERED: SODIUM CHL 0.9% 0 ML ONE (15:33)
[2023-07-30] MEDS ORDERED: MIDAZOLAM HCL 2MG/2ML 2ml VIAL (1mg/ml) ONE (15:33)
== END 2023-07-30 18:25 | disposition home or self-care (01) ==
LOC: CATH 11:07
PROVIDERS: ATTEND Internal Medicine Cardiovascular Disease
DX: R07.89 Other chest pain (principal); R06.02 Shortness of breath; I10 Essential (primary) hypertension; E78.5 Hyperlipidemia, unspecified; E11.9 Type 2 diabetes mellitus without complications; Z90.710 Acquired absence of both cervix and uterus; Z79.899 Other long term (current) drug therapy; Z79.01 Long term (current) use of anticoagulants
CPT/HCPCS: 93458; C1894; J1644; J2250; J3010; Q9967; 99152

== ENCOUNTER → 2023-11-11 | Outpatient (CLI) | payer MEDICARE ==
[~2023-11-11] MED LIST changes: -CHOL20007 PO; -SODI1SOL PO; +[UNRECOGNIZED DRUG - CODE] PO
== END | disposition home or self-care (01) ==
LOC: Rad HDHVI 09:05
PROVIDERS: ATTEND Internal Medicine Cardiovascular Disease
DX: I10 Essential (primary) hypertension (principal); E78.5 Hyperlipidemia, unspecified; E11.9 Type 2 diabetes mellitus without complications
CPT/HCPCS: 93880

== ENCOUNTER 2024-05-16 13:58 | Emergency (ER) | payer MEDICARE ==
[~2024-05-16] VITALS: Ht 165.1 cm; Wt 78.1 kg
[2024-05-16 14:17] VITALS: BP 124/68; PULSE 85; RESP 20; O2SAT 96
--- NOTE | 2024-05-16 14:40 | ED.PDOC ---
Musculoskeletal HPI Comments 74-year-old presents for left knee pain x1 day. Onset occurred after patient was bending down and reports the sensation of knee buckling. Concerned about a possible dislocation. Pain is located to the left medial aspect of the knee. Pain rated as moderate and worsens with movement Able to bear weight on the leg Denies trauma to the knee or recent fall Denies skin color changes around the knee Denies masses around the knee Denies popping/locking/giving out of the knee Denies fever chills night sweats nausea vomiting Denies previous surgeries to the knee nor significant injury Chief Complaint: Lower Extremity Time Seen by MD: 14:25 Primary Care Provider: JUSTIN Reviewed Notes: Nurses Notes, Medications, Allergies Allergies: Coded Allergies: NO KNOWN ALLERGIES (Unverified , 12/01/18) Home Meds Reported Medications Cholecalciferol (Vitamin D3 Ultra Potency) 1,250 Mcg Tab, 1 TAB PO DAILY for SUPPLEMENT 07/30/23 Allopurinol (Allopurinol) 300 Mg Tab, 1 TAB PO DAILY for GOUT 07/23/23 Atorvastatin Calcium (ATORVASTATIN CALCIUM) 10 Mg Tab, 1 TAB PO QPM for HIGH CHOLESTEROL 07/23/23 Semaglutide (Ozempic) 2 Mg/3 Ml Inj, 1 MG SC QWEEKLY for A1C CONTROL 07/23/23 Empagliflozin (Jardiance) 25 Mg Tab, 1 TAB PO DAILY for DIABETES 07/23/23 Lisinopril (Lisinopril) 40 Mg Tab, 1 TAB PO QAM 12/01/18 Chlorthalidone (Chlorthalidone) 50 Mg Tab, 1 TAB PO DAILY for HYPERTENSION 12/01/18 Sitagliptin Phosphate (Januvia) 100 Mg Tab, 1 TAB PO DAILY for DIABETES 12/01/18 Information Source: Patient Mode of Arrival: Ambulatory Past Medical History PAST MEDICAL HISTORY: DM, High Lipids, HTN Surgical History: Hysterectomy CAR RACER History: Denies all CAR RACER Hx Family History Family History: Reviewed,noncontributory to illness, Family hx of DM, Family hx of heart belén Social History Smoker: Non-Smoker Alcohol: Denies ETOH Use Drugs: Denies Drug Use Lives In: Home All Other Systems: Reviewed and Negative (Per HPI) Physical Exam General Appearance: No Apparent Distress, Normal HEENT: Normal ENT Inspection, Pharynx Normal, TMs Normal Neck: Full Range of Motion, Non-Tender, Normal, Normal Inspection Respiratory: Chest Non-Tender, Lungs Clear, No Accessory Muscle Use, No Respiratory Distress, Normal Breath Sounds Cardiovascular: No Edema, No JVD, No Murmur, No Gallop, Normal Peripheral Pulses, Regular Rate/Rhythm Breast Exam: Deferred Gastrointestinal: No Organomegaly, Non Tender, No Pulsatile Mass, Normal Bowel Sounds, Soft Genitalia: Deferred Pelvic: Deferred Rectal: Deferred Extremities: No calf tenderness, Normal capillary refill, Normal inspection, Normal range of motion, Non-tender, No pedal edema Musculoskeletal : Location: Left Extremity Location: Knee (Normal on inspection. Full flexion-extension. No crepitus. 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 Was a procedure done?: No Differential Diagnosis EXT Differential Diagnosis: Fracture, Sprain, Dislocation, Arthritis, Bursitis, Other X-Ray, Labs, Meds, VS Vital Signs Date Time Temp Pulse Resp B/P (MAP) Pulse Ox O2 Delivery O2 Flow Rate FiO2 05/16/24 14:17 97.9 85 20 124/68 (86) 96 PATIENT: AARON MARTE CACCT: [id number]: [id number] : 1950 LOC: ER ROOM / BED: / AGE / SEX: 74 / F ADM STATUS: REG ER SERVICE [id number] ORDERING PHYSICIAN: IVANA SAPP NP PROCEDURE(s): LKNCT - CT L KNEE WO CONTRAST REASON: dislocation? ORDER NUMBER(s): [id number], ACCESSION NUMBER(s): [id number] CLINICAL INFORMATION: 74 years old, Female; possible dislocation. TECHNIQUE: Axial CT images of the left knee were obtained without IV contrast. Coronal and sagittal reformatted images were obtained, reviewed, and stored. All CT scans at this medical facility are performed using dose modulation techniques as appropriate to a performed exam including the following: Automated exposure control was utilized; adjustment of the MA and/or KV according to patient size; and use of iterative reconstruction technique. CTDIvol = 7.89 mGy DLP = 197.29 mGy-cm COMPARISON: None. FINDINGS: Evidence of acute fracture or dislocation. [id number] arthritic changes, greatest in the medial compartment where there is joint space narrowing, subchondral sclerosis, and small marginal osteophytes. Mild soft ti ssue edema along the anterior aspect of the knee. No organized fluid collection or mass visualized. No significant joint effusion. IMPRESSION: 1. No evidence of acute bony abnormality. 2. Nonacute findings as described above. ATED BY: HIRAM LINDSAY DO DICTATED DATE/TIME: 05/16/241524 SIGNED BY: HIRAM LINDSAY DO SIGNED DATE/TIME: 05/16/241524 CC: X-Ray, Labs, Meds, VS Comment Patient is stable for discharge at this time. External notes reviewed. Test results and diagnostic imaging interpreted. All diagnostic findings, discharge care, education and instructions provided Follow-up with PCP in 2 to 3 days Patient verbalized understanding and agreed to treatment plan Vital signs stable, afebrile, no acute distress noted Patient ambulatory with strong steady gait Advised to return precautions for any new or worsening symptoms, return to ER immediately for re-evaluation Patient is aware that the purpose of this visit was for an acute medical emergency requiring emergent stabilization. Chronic conditions, including malignancies have not been ruled out. Patient is instructed to follow up with PCP as directed and discharge instructions for continued care and workup. If unable to arrange follow-up, patient is to return to the emergency department for reassessment. Patient (parent or legal guardian if applicable) was given verbal and written discharge instructions and acknowledges understanding. Time of 1ST Reevaluation: 15:56 Reevaluation 1ST: Improved Patient Education/Counseling: Diagnosis, Treatment Family Education/Counseling: Diagnosis, Treatment Departure 1 Departure Time of Disposition: 15:57 Impression: Primary Impression: Arthritis of knee, left Disposition: 01 HOME / SELF CARE / HOMELESS Condition: Stable e-Prescriptions Diclofenac Sodium (Topical) (Voltaren Arthritis Pain) 1 % Gel 2 GRAMS EX QID for 10 Days, #60 GRAMS 0 Refills Prov: IVANA SAPP NP 05/16/24 Discharged With: Self Critical Care Note Critical Care Time?: No Stability Stability form required: No Heart Score Heart Score: Heart Score Response (Comments) Value History N/A 0 EKG N/A 0 Age N/A 0 Risk Factors N/A 0 Troponin N/A 0 Total 0 IVANA SAPP NP May 16, 2024 14:40
--- NOTE | 2024-05-16 15:27 | DVH ---
CLINICAL INFORMATION: 74 years old, Female; possible dislocation. TECHNIQUE: Axial CT images of the left knee were obtained without IV contrast. Coronal and sagittal r eformatted images were obtained, reviewed, and stored. All CT scans at this medical facility are p erformed using dose modulation techniques as appropriate to a performed exam including the following: Automated exposure control was utilized; adjustment of the MA and/or KV according to patient size; a nd use of iterative reconstruction technique. CTDIvol = 7.89 mGy DLP = 197.29 mGy-cm COMPARISON: None. FINDINGS: Evidence of acute fracture or dislocation. [id number] arthritic changes, greatest in the medial compartment where there is joint space narrowing, subchondral sclerosis, and small margina l osteophytes. Mild soft tissue edema along the anterior aspect of the knee. No organized fluid colle ction or mass visualized. No significant joint effusion. IMPRESSION: 1. No evidence of acute bony abnormality. 2. Nonacute findings as described above.
[2024-05-16] MEDS ORDERED: DICL1GEL59 EX (15:58)
[2024-05-16] MEDS ORDERED: MELO7.5T7 PO (16:02)
== END 2024-05-16 16:11 | disposition home or self-care (01) ==
LOC: ER 13:58
DX: M17.12 Unilateral primary osteoarthritis, left knee (principal); I10 Essential (primary) hypertension; E11.9 Type 2 diabetes mellitus without complications; Z79.84 Long term (current) use of oral hypoglycemic drugs; Z79.85 Long-term (current) use of injectable non-insulin antidiabetic drugs; Z90.710 Acquired absence of both cervix and uterus
CPT/HCPCS: 73700

== ENCOUNTER → 2024-07-22 | Outpatient (CLI) | payer MEDICARE ==
[~2024-07-22] MED LIST changes: +DICL1GEL59 EX; +MELO7.5T7 PO
--- NOTE | 2024-07-22 14:36 | DVH ---
EXAM: XY L KNEE 3V XRAY CLINICAL INDICATION: R/O FX TECHNIQUE: XY L KNEE 3V XRAY Comparison: None FINDINGS/IMPRESSION: There is no evidence of acute fracture or dislocation. Advanced left knee osteoarthritis. The alignment is anatomical. There is no radiopaque foreign body.
== END | disposition home or self-care (01) ==
LOC: Rad HDHVI 11:15
PROVIDERS: ATTEND Internal Medicine Cardiovascular Disease
DX: M17.12 Unilateral primary osteoarthritis, left knee (principal)
CPT/HCPCS: 73562

== ENCOUNTER 2024-12-19 17:14 | Inpatient (IN) | payer MEDICARE ==
[~2024-12-19] VITALS: Ht 162.6 cm; Wt 82.7 kg
[2024-12-19 18:18] LABS: Hematocrit 49.9 % (36.0-46.0); Hemoglobin 17.1 g/dL (12.2-16.2); Mean Corpuscular Hemoglobin 31.6 pg (28.0-32.0); Mean Corpuscular Volume 92.1 fL (80.0-100.0); Nucleated Red Blood Cells % 0.3 %
[2024-12-19 18:32] LABS: Calcium 11.1 mg/dL (8.7-10.4); Chloride 100 mmol/L (98-107); Potassium 3.0 mmol/L (3.5-5.1); Sodium 135 mmol/L (136-145)
[2024-12-19 18:33] LABS: Anion Gap 14 (5-15); Carbon Dioxide 21 mmol/L (20-31)
[2024-12-19 18:38] LABS: BUN/Creatinine Ratio 21.7 (10.0-20.0)
[2024-12-19 18:39] LABS: Blood Urea Nitrogen 30 mg/dL (9-23); Glucose 163 mg/dL (74-106)
--- NOTE | 2024-12-19 18:55 | ED.PDOC ---
History of present illness HPI Comments 74 y.o female with PMHx of HLD, HTN, DM, UTI, and urine incontinence, presents to the ED for an evaluation of hyperglycemia. Patient reports for the past 5 days having BG readings of 250+ and states having a "queasy feeling". Patient reports recent UTI dx at [facility] urgent care about 2 weeks ago, was placed on ant ibiotics in which she completed the course but continues to have bilateral 4/10 flank pain associated with nausea, weakness and increased thirst. Patient denies any dry mouth, abdominal pain, SOB, chest pain, fever, chills, nausea, vomiting, diarrhea, hematuria or bloody stool. Upon ED arrival, BG read 188. Chief Complaint: Hyperglycemia Time Seen by MD: 18:00 Primary Care Provider: JUSTIN History of present illness: Nurses Notes, Medications, Allergies Allergies: Coded Allergies: NO KNOWN ALLERGIES (Unverified , 12/01/18) Home Meds Active Scripts Meloxicam (Meloxicam) 7.5 Mg Tab, 1 TAB PO DAILY for 30 Days, #30 TAB 0 Refills Prov:IVANA SAPP FIRST OFFICER AND FLIGHT INSTRUCTOR 05/16/24 Diclofenac Sodium (Topical) (Voltaren Arthritis Pain) 1 % Gel, 2 GRAMS EX QID for 10 Days, #60 GRAMS 0 Refills Prov:IVANA SAPP FIRST OFFICER AND FLIGHT INSTRUCTOR 05/16/24 Reported Medications Cholecalciferol (Vitamin D3 Ultra Potency) 1,250 Mcg Tab, 1 TAB PO DAILY for SUPPLEMENT 07/30/23 Allopurinol (Allopurinol) 300 Mg Tab, 1 TAB PO DAILY for GOUT 07/23/23 Atorvastatin Calcium (ATORVASTATIN CALCIUM) 10 Mg Tab, 1 TAB PO QPM for HIGH CHOLESTEROL 07/23/23 Semaglutide (Ozempic) 2 Mg/3 Ml Inj, 1 MG SC QWEEKLY for A1C CONTROL 07/23/23 Empagliflozin (Jardiance) 25 Mg Tab, 1 TAB PO DAILY for DIABETES 07/23/23 Lisinopril (Lisinopril) 40 Mg Tab, 1 TAB PO QAM 12/01/18 Chlorthalidone (Chlorthalidone) 50 Mg Tab, 1 TAB PO DAILY for HYPERTENSION 12/01/18 Sitagliptin Phosphate (Januvia) 100 Mg Tab, 1 TAB PO DAILY for DIABETES 12/01/18 Information Source: Patient Mode of Arrival: Ambulatory Timing: Days (5) Duration: Since onset History of: Diabetes, Frequent hyperglycemic Modifying factors: Nothing Associated signs and symptoms: Nausea Past Medical History PAST MEDICAL HISTORY: DM, High Lipids, HTN 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 History: 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 VOCAL Hx Family History Family History: Reviewed,noncontributory to illness, Family hx of DM, Family hx of heart belén Social History Smoker: Non-Smoker Alcohol: Denies ETOH Use Drugs: Denies Drug Use Lives In: Home Constitutional: denies: chills, diaphoresis, fatigue, fever, malaise, sweats, weakness, others EENTM: denies: blurred vision, double vision, ear bleeding, ear discharge, ear drainage, ear pain, ear ringing, eye pain, eye redness, hearing loss, mouth pain, mouth swelling, nasal discharge, nose bleeding, nose congestion, nose pain, photophobia, tearing, throat pain, throat swelling, voice changes, others Respiratory: denies: cough, hemoptysis, orthopnea, SOB at rest, shortness of breath, SOB with excertion, stridor, wheezing, others Cardiovascular: denies: chest pain, dizzy spells, diaphoresis, Dyspnea on exertion, edema, irregular heart beat, left arm pain, lightheadedness, palpitations, PND, syncope, others Gastrointestinal: reports: nausea; denies: abdomen distended, abdominal pain, blood streaked bowels, constipated, diarrhea, dysphagia, difficulty swallowing, hematemesis, melena, poor appetite, poor fluid intake, rectal bleeding, rectal pain, vomiting, others Genitourinary: reports: flank pain; denies: abnormal vagina bleeding, burning, dyspareunia, dysuria, frequency, hematuria, incontinence, pain, , vagina discharge, urgency, others Neurological: denies: dizziness, fainting, headache, left sided numbness, left sided weakness, numbness, paresthesia, pre-existing deficit, right sided numbness, right sided weakness, seizure, speech problems, tingling, tremors, weakness, others Musculoskeletal: denies: back pain, gout, joint pain, joint swelling, muscle pain, muscle stiffness, neck pain, others Integumetry: denies: bruises, change in color, change in hair/nails, dryness, laceration, lesions, lumps, rash, wounds, others Allergic/Immunocompromised: denies: Difficulty Healing, Frequent Infections, Hives, Itching, others Hematologic/Lymphatic: denies: anemia, blood clots, easy bleeding, easy bruising, swollen glands, others Endocrine: reports: excessive thirst; denies: excessive hunger, excessive sweating, excessive urination, flushing, intolerance to cold, intolerance to heat, unexplained weight gain, unexplained weight loss, others Psychiatric: denies: anxiety, bipolar disorder, depression, hopeless, panic disorder, schizophrenia, sleepless, suicidal, others All Other Systems: Reviewed and Negative Physical Exam General Appearance: Moderate Distress, Obese HEENT: Normal ENT Inspection, Pharynx Normal, TMs Normal Neck: Full Range of Motion, Non-Tender, Normal, Normal Inspection Respiratory: Chest Non-Tender, Lungs Clear, No Accessory Muscle Use, No Respiratory Distress, Normal Breath Sounds Cardiovascular: No Edema, No JVD, No Murmur, No Gallop, Normal Peripheral Pulses, Regular Rate/Rhythm Breast Exam: Deferred Gastrointestinal: No Organomegaly, Non Tender, No Pulsatile Mass, Normal Bowel Sounds, Soft Genitalia: Deferred Pelvic: Deferred Rectal: Deferred Extremities: No calf tenderness, Normal capillary refill, Normal inspection, Normal range of motion, Non-tender, No pedal edema Musculoskeletal : Apperance: Normal Neurologic: Alert, sample tester II-XII nml as Tested, Motor Weakness, Normal Affect, Normal Mood, No Sensory Deficits Cerebellar Function: Normal Reflexes: Normal Skin: Dry, Normal Color, Warm Lymphatic: No Adenopathy Was a procedure done? Was a procedure done?: No Differential Diagnosis (DM) Differential Diagnosis: Dehydration, Diabetic Coma, DKA, Electrolyte Abnormality, Hyperglycemia, Hyperosmolar State X-Ray, Labs, Meds, VS Vital Signs Date Time Temp Pulse Resp B/P (MAP) Pulse Ox O2 Delivery O2 Flow Rate FiO2 12/19/24 17:42 98.0 94 16 122/85 (97) 97 98.0 Lab Test 12/19/24 17:48 Range/Units White Blood Count 9.4 4.4-10.8 10^3/uL Red Blood Count 5.43 H 4.0-5.20 10^6/uL Hemoglobin 17.1 H 12.2-16.2 g/dL Hematocrit 49.9 H 36.0-46.0 % Mean Corpuscular Volume 92.1 80.0-100.0 fL Mean Corpuscular Hemoglobin 31.6 28.0-32.0 pg Mean Corpuscular Hemoglobin Concent 34.3 32.0-36.0 g/dL Red Cell Distribution Width 12.7 11.8-14.3 % Platelet Count 206 140-450 10^3/uL Mean Platelet Volume 8.9 6.9-10.8 fL Neutrophils (%) (Auto) 66.9 37.0-80.0 % Lymphocytes (%) (Auto) 24.2 10.0-50.0 % Monocytes (%) (Auto) 7.6 0.0-12.0 % Eosinophils (%) (Auto) 0.9 0.0-7.0 % Basophils (%) (Auto) 0.4 0.0-2.0 % Neutrophils # (Auto) 6.3 1.6-8.6 10 ^3/uL Lymphocytes # (Auto) 2.3 0.4-5.4 10 ^3/uL Monocytes # (Auto) 0.7 0-1.3 10 ^3/uL Eosinophils # (Auto) 0.1 0-0.8 10 ^3/uL Basophils # (Auto) 0 0-0.2 10 ^3/uL Nucleated Red Blood Cells 0.3 % Sodium Level 135 L 136-145 mmol/L Potassium Level 3.0 L 3.5-5.1 mmol/L Chloride Level 100 98-107 mmol/L Carbon Dioxide Level 21 20-31 mmol/L Anion Gap 14 5-15 Blood Urea Nitrogen 30 H 9-23 mg/dL Creatinine 1.38 H 0.550-1.02 mg/dL Glomerular Filtration Rate Calc 40 >90 mL/min BUN/Creatinine Ratio 21.7 H 10.0-20.0 Serum Glucose 163 H 74-106 mg/dL Calcium Level 11.1 H 8.7-10.4 mg/dL Beta-Hydroxybutyric Acid 1.412 H < 0.4 mmol/L IV Hep-Lock was established. The patient's beta hydroxybutyric acid is elevated at 1.412 The patient's CBC is within normal limits The chemistry panel shows hypokalemia at 3.0 The BUN and the creatinine is elevated at 30/1.38 At this time, the patient will be admitted to the hospitalist The patient did receive insulin IV push The patient is being given the potassium IV piggyback as well as orally Time of 1ST Reevaluation: 18:55 Reevaluation 1ST: Unchanged Patient Education/Counseling: Diagnosis, Treatment, Prognosis Family Education/Counseling: No Family Present SEPSIS Sepsis Screen Date sepsis recognized/suspect: Dec 19, 2024 Time Sepsis recognized/suspect: 1724 Recent Procedure: No On Antibiotic Therapy: No Respiratory Rate >20: No Heart Rate >90: Yes Temp<36 C (96.8 F) or >38.3 C: No SBP <90 or MAP <65 mmHG: No New Acute Mental Status Change: No Is the patient on CPAP, BIPAP,: No Physician Orders Urinalysis (12/19/24 17:32) Heplock Iv (12/19/24 17:32) Spray Booth Operator (12/19/24 17:32) Blood Pressure (12/19/24 17:32) Pulse Oximetry (12/19/24 17:32) Vital Signs Date Time Temp Pulse Resp B/P (MAP) Pulse Ox O2 Delivery O2 Flow Rate FiO2 12/19/24 17:42 98.0 94 16 122/85 (97) 97 98.0 Laboratory Tests Test 12/19/24 17:48 White Blood Count 9.4 10^3/uL (4.4-10.8) Departure 1 Departure Time of Disposition: 19:47 Impression: Primary Impression: Acute hyperglycemia Additional Impressions: Uncontrolled diabetes mellitus Qualified Codes: E13.65 - Other specified diabetes mellitus with hyperglycemia Hypokalemia Disposition: ADMITTED INPATIENT Admit to: Tele Condition: Fair Critical Care Note Critical Care Time?: Yes (45 min-critical care time only) Stability Stability form required: Yes Unstable for transfer: Telemetry monitoring (Telemetry monitoring required), ED Physician Assesment (Clinical assesment) I personally scribed for ANAM POSEY MD ([email or web address]) on 12/19/24 at 18:55. Electronically submitted by Peri Rai ([facility]). ANAM POSEY MD Dec 19, 2024 18:55
[2024-12-19] MEDS ORDERED: MORPHINE SULFATE INJ 2 MG/ml SYRG IV PRN (21:45)
[2024-12-19] MEDS ORDERED: NITROGLYCERIN 0.4 MG SL TAB SL PRN (21:45)
--- NOTE | 2024-12-19 21:56 | DVHHP2 ---
History of Present Illness History of Present Illness This is a 74-year-old female with past medical history of DM2, hypertension, HLD, bilateral cataract surgery, hysterectomy came to ED with the complain of her blood sugar level remained more than 250 for last five days. Patient was denies any recently started new medication or changes had diet. She also feels tired, occasional sweaty, sleepy, mild vertigo, nausea, dry mouth, urination frequency increase normal than other time and recently noted mild swelling bilateral leg when hanging prolonged time. Patient was denies any chest pain, fever, cough, vertigo, abdominal pain, nausea, vomiting, diarrhea, focal weakness. Patient seen her interpretive program coordinator and angiogram done on August 08who is came back normal as per patient. Patient was visited [facility] ER 2weeks ago due to UTI and discharged with nitrofurantoin Abx. PAST MEDICAL HISTORY: DM2, High HLD, HTN Surgical History: Hysterectomy, BILATERAL CATARACTS SURGERY Family History: Reviewed,noncontributory to illness, Family hx of DM Social History : EX-SMOKER QUIT SIX ER AGO, smoke 40 yes Alcohol: Denies ETOH Use Drugs: Denies Drug Use Lives In: Home Allergy: No known allergy PCP: Dr. Colunga Review of Systems Constitutional: Yes: Weakness; No: Fever, Chills, Sweats, Malaise, Other Eyes: No: Pain, Vision change, Conjunctivae inflammation, Eyelid inflammation, Other, Redness ENT: No: Ear pain, Ear discharge, Nose pain, Nose discharge, Nose congestion, Mouth pain, Mouth swelling, Throat pain, Throat swelling, Other Respiratory: No: Cough, Dry, Shortness of breath, SOB with excertion, Wheezing, Hemoptysis, Pleuritic Pain, Sputum, Wheezing, Other Cardiovascular: Edema; No: Chest Pain, Palpitations, Orthopnea, Paroxysmal Noc. Dyspnea, Lt Headedness, Other Gastrointestinal: Nausea; No: Vomiting, Abdominal Pain, Diarrhea, Constipation, Melena, Hematochezia, Other Genitourinary: No Dysuria, No Frequency, No Incontinence, No Hematuria, No Retention, No Other Musculoskeletal: No: other, neck pain, shoulder pain, arm pain, back pain, hand pain, leg pain, foot pain Skin: No: Rash, Lesions, Jaundice, Bruising, Other Neurological: No: Weakness, Numbness, Incoordination, Change in speech, Confusion, Seizures, Other Allergies: Coded Allergies: NO KNOWN ALLERGIES (Unverified , 12/01/18) Medications Current Medications Medications Dose Ordered Sig/Cassi Route Start Time Stop Time Status Last Admin Dose Admin Nitroglycerin 0.4 mg Q5MINP PRN SL 12/19/24 21:45 UNV Morphine Sulfate 2 mg Q30M PRN IV 12/19/24 21:45 UNV Exam Vital Signs Vital Signs Date Time Temp Pulse Resp B/P (MAP) Pulse Ox O2 Delivery O2 Flow Rate FiO2 12/19/24 21:05 85 14 132/83 (99) 96 12/19/24 17:42 98.0 98.0 General Appearance: Alert, Oriented X3, Cooperative HEENT: PERRLA, EOMI Respiratory: Clear to auscultation, Normal air movement Cardiovascular: Normal S1, Normal S2, No murmurs Abdominal: Normal bowel sounds, Soft, No tenderness, No hepatospenomegaly Extremities: No clubbing, No cyanosis Skin: No rashes, No breakdown Neuro: Normal gait, Normal speech, Strength at 5/5 X4 ext Labs/Xrays Labs Test 12/19/24 17:48 Range/Units White Blood Count 9.4 4.4-10.8 10^3/uL Red Blood Count 5.43 H 4.0-5.20 10^6/uL Hemoglobin 17.1 H 12.2-16.2 g/dL Hematocrit 49.9 H 36.0-46.0 % Mean Corpuscular Volume 92.1 80.0-100.0 fL Mean Corpuscular Hemoglobin 31.6 28.0-32.0 pg Mean Corpuscular Hemoglobin Concent 34.3 32.0-36.0 g/dL Red Cell Distribution Width 12.7 11.8-14.3 % Platelet Count 206 140-450 10^3/uL Mean Platelet Volume 8.9 6.9-10.8 fL Neutrophils (%) (Auto) 66.9 37.0-80.0 % Lymphocytes (%) (Auto) 24.2 10.0-50.0 % Monocytes (%) (Auto) 7.6 0.0-12.0 % Eosinophils (%) (Auto) 0.9 0.0-7.0 % Basophils (%) (Auto) 0.4 0.0-2.0 % Neutrophils # (Auto) 6.3 1.6-8.6 10 ^3/uL Lymphocytes # (Auto) 2.3 0.4-5.4 10 ^3/uL Monocytes # (Auto) 0.7 0-1.3 10 ^3/uL Eosinophils # (Auto) 0.1 0-0.8 10 ^3/uL Basophils # (Auto) 0 0-0.2 10 ^3/uL Nucleated Red Blood Cells 0.3 % Sodium Level 135 L 136-145 mmol/L Potassium Level 3.0 L 3.5-5.1 mmol/L Chloride Level 100 98-107 mmol/L Carbon Dioxide Level 21 20-31 mmol/L Anion Gap 14 5-15 Blood Urea Nitrogen 30 H 9-23 mg/dL Creatinine 1.38 H 0.550-1.02 mg/dL Glomerular Filtration Rate Calc 40 >90 mL/min BUN/Creatinine Ratio 21.7 H 10.0-20.0 Serum Glucose 163 H 74-106 mg/dL Calcium Level 11.1 H 8.7-10.4 mg/dL Beta-Hydroxybutyric Acid 1.412 H < 0.4 mmol/L Assessment/Plan Assessment/Plan # Type2 diabetes mellitus with hyperglycemia -PATIENT CAME WITH HYPERGLYCEMIA fingerstick blood sugars at home >250 -AbF5p-0.3 On 2024 -Home medication Ozempic2 mg/ 3 mL/weekly, Januvia 100 mg daily, glipizide 5 mg, elrtuephumlkg03 mg. -In ED patient was received NS bolus -AG 7 -BETA HYDROXYBUTYRATE ACID - 1.41 TO -CXR-no cardiopulmonary abnormality. -started Lantus 10 units SC with team -Lispro 5 Units SC before meal -Monitor fingerstick blood sugars -Follow HA1c # Hypokalemia -Serum potassium 3.0 during admission -Received 60 mEq KCL at ED -Repeat K+-2.9 ,Kcl 40 meq IV given stat. -Follow up BMP #Hypercalcemia likely dehydration -Serum calcium 11.1 -NSS IV 100 cc/hours -PTH-69.1, vitamin-D 66.1 # WYATT likely vasomotor nephropathy -Serum creatinine 1.38, unknown baseline -NSS IV 100 cc/hours -EGFR 40, -avoid nephrotoxic drug # Hyperlipidemia -atorvastatin 40 mg p.o. daily -lipid profile we will follow # Essential hypertension - Lisinopril 40 mg p.o. daily, hold now due to WYATT -Hold Chlorthalidone for now for hypokalemia -Echo (06/2023) --TRACE TR, MR, EF >60% -EKG(08/09)- SINUS RHYTHM, HR 86, QTc -418 -Monitor BP # Urinary incontinence -OXYBUTYNIN 5 MG PO BID Diet :diabetic GI prophylaxis: Continue pantoprazole 40 mg p.o. daily DVT prophylaxis: Lovenox 40 unit SC daily Goals of care discussions, more than25 minute spent. Full code status Case discussed with Dr. Nunes . Plan discussed with: Patient, Other (Nurse) My Orders Orders - SHARRON PRYOR Procedure Category Date Status Time Admit ADMIT 12/19/24 Transmitted 21:39 Nitroglycerin PHA 12/19/24 Logged Sublingual (Ntrostat 21:45 Morphine Sulfate PHA 12/19/24 Logged Injection 21:45 Oxygen By Nasal RT 12/19/24 Transmitted Cannula 21:39 Date of Service: Dec 19, 2024 Billing Provider: HERLINDA NUNES MD Common Visit Codes: 59211-[id number] INP/OBS CARE (HIGH) Secondary Visit Codes: [id number]-[id number] CARE PLAN 30 MINUTES SHARRON PRYOR Dec 19, 2024 21:56
[2024-12-19] MEDS: SODIUM CHLORIDE 0.9% 1,000 ML IV SCH (22:00)
[2024-12-19 22:29] LABS: Magnesium 2.0 mg/dL (1.6-2.6)
--- NOTE | 2024-12-19 23:56 | DVH ---
CHEST RADIOGRAPH Indication: R/O cardiopulmonary disease Technique: Single frontal view of the chest was obtained COMPARISON: XY CHEST PORTABLE on DOS: 07/22/23 FINDINGS: Lines and Tubes: None Lungs: Clear Pleura: No effusion. No pneumothorax. Cardiomediastinal contours: Unremarkable. Atherosclerotic vascular calcifications. Bones: Unremarkable IMPRESSION: 1. No acute disease.
[2024-12-20 07:06] LABS: Alkaline Phosphatase 63 U/L (46-116); Anion Gap 15 (5-15); BUN/Creatinine Ratio 23.9 (10.0-20.0); Carbon Dioxide 23 mmol/L (20-31); Chloride 99 mmol/L (98-107); Sodium 137 mmol/L (136-145); Total Protein 7.5 g/dL (5.7-8.2)
[2024-12-20 07:07] LABS: Bilirubin, Total 0.8 mg/dL (0.2-1.0)
[2024-12-20 07:09] LABS: Alanine Aminotransferase 43 U/L (7-40); Albumin 5.0 g/dL (3.2-4.8); Blood Urea Nitrogen 34 mg/dL (9-23); Calcium 11.4 mg/dL (8.7-10.4); Glucose 210 mg/dL (74-106); Potassium 2.9 mmol/L (3.5-5.1)
[2024-12-20 07:20] LABS: Triglycerides 219 mg/dL (< 150)
[2024-12-20 07:22] LABS: Cholesterol 251 mg/dL (< 200); HDL Cholesterol 35 mg/dL (40-59)
[2024-12-20] MEDS: POTASSIUM CHL 20 Meq TABLET PO ONE (08:22)
[2024-12-20] MEDS: SODIUM CHLORIDE 0.9% 1,000 ML IV ONE (08:23)
[2024-12-20] MEDS: PANTOPRAZOLE 40 MG TAB PO SCH (08:23)
[2024-12-20] MEDS: OXYBUTYNIN CHL 5 MG TAB PO SCH (08:23)
[2024-12-20] MEDS: POTASSIUM CHL 20MEQ/100ML 100 ML IV ONE (08:55)
[2024-12-20] MEDS ORDERED: DEXTROSE (50%) 50ML SYRG IV PRN (09:15)
[2024-12-20] MEDS: INSULIN LISPRO (HUMAN) 100 UNITS/ML ML SC SCH (09:21)
[2024-12-20 09:50] VITALS: BP 135/59; PULSE 72; RESP 16; TEMP 97.8; O2SAT 96
[2024-12-20] MEDS ORDERED: PATIENTS OWN MEDICATION (Allopurinol 1 TAB) PO SCH (10:00)
[2024-12-20 10:24] LABS: INR 2.85 (0.9-1.15); Partial Thromboplastin Time 62.3 SEC (24.5-34.5); Prothrombin Time 27.2 sec (9.3-11.8)
[2024-12-20] MEDS: POTASSIUM CHL 20MEQ/100ML 100 ML IV SCH (11:11)
[2024-12-20] MEDS: POTASSIUM EFFERVESENT TAB 25 MEQ PO ONE (11:27)
[2024-12-20] MEDS: ENOXAPARIN SOD 30 MG/0.3 ML SYRINGE SC SCH (11:28)
[2024-12-20] MEDS: ALLOPURINOL 100 MG TAB PO SCH (12:28)
[2024-12-20] MEDS: InsuLIN REG 1unit/0.01ml Soln (100units/ml) SC SCH (12:56)
[2024-12-20] MEDS: ACCU-CHEK COMFORT CURVE STRIP VI SCH (12:57)
--- NOTE | 2024-12-20 13:15 | DVH ---
Exam: CT CT AB PEL WO CON-NO ORAL OR IV History: flank pain , nephrolithiasis Comparison Study: [facility] on DOS: 09/05/21 Technique: Multidetector spiral CT of the abdomen and pelvis was performed from lung bases to pubic symphysis. Imaging was performed without IV contrast. Axial, coronal and sagittal multiplanar reform ats were obtained from the axial data set by the technologist. Radiation dose : Abdomen/Pelvis: CTDIvol 7.68 mGy, DLP 389.69 mGy*cm. Findings: Evaluation of solid organs is limited due to lack of intravenous contrast use. Lung Bases: No acute or significant lung base finding. Normal heart size. No pleural or pericardial effusion. Liver: Diffuse hepatic steatosis. Gallbladder and biliary Tree: Unremarkable Spleen: Unremarkable Pancreas: The pancreas is grossly normal in appearance. Adrenal Glands: Unremarkable Kidneys: Kidneys are grossly normal without calculi or hydronephrosis. Bladder: Grossly unremarkable for degree of distention. Bowel: The stomach is grossly normal in appearance. Small bowel and colon are normal in caliber and d istribution. Normal appendix is visualized in the right lower quadrant without findings of appendicit is. Sigmoid diverticulosis. Ascites: Absent Lymphadenopathy: No mesenteric, retroperitoneal or periportal lymphadenopathy. Abdominal wall and Mesentery: Unremarkable. Vasculature: Calcified atherosclerotic disease. Pelvic Organs: The uterus is surgically absent. Musculoskeletal: No aggressive focal bony lesions, acute fractures or dislocation. IMPRESSION: 1. No acute abdominal or pelvic findings. No hydronephrosis or nephrolithiasis. Diffuse hepatic stea tosis. Sigmoid diverticulosis. Radiation optimization: All CT scans at this facility use at least one of these dose optimization chioma hniques: Automated exposure control mA and/or kV adjustment per patient size (includes targeted exams where dose is matched to clinical indication) or iterative reconstruction. HS:Y
--- NOTE | 2024-12-20 13:47 | DVHPN2 ---
Progress Note - Dictate Date Seen: Dec 20, 2024 Medical Necessity Reason Pt with a Central, PICC or Fol: No Subjective PT WITH DIABETES POLYURIA POLYDIPSIA ELEVATED BS HYPOVOLEMIA HYPOKALEMIA WITH SX OF DIZZINESS, FATIGUE vital signs Vital Sign Date Time Temp Pulse Resp B/P (MAP) Pulse Ox O2 Delivery O2 Flow Rate FiO2 12/20/24 07:49 97.9 72 16 122/82 (95) 97 97.9 medications Current Medications Medications Dose Ordered Sig/Cassi Route Start Time Stop Time Status Last Admin Dose Admin Nitroglycerin 0.4 mg Q5MINP PRN SL 12/19/24 21:45 Morphine Sulfate 2 mg Q30M PRN IV 12/19/24 21:45 Insulin Glargine HS SC 12/19/24 22:00 UNV Insulin Human Lispro 5 units AC SC 12/20/24 07:00 12/20/24 12:57 5 UNITS Sodium Chloride 1,000 ml @ 100 mls/hr Q10H IV 12/19/24 22:00 12/20/24 11:10 100 MLS/HR Enoxaparin Sodium 30 mg DAILY SC 12/20/24 10:00 12/20/24 11:28 30 MG Pantoprazole Sodium 40 mg DAILY@0600 PO 12/20/24 06:00 12/20/24 08:23 40 MG Oxybutynin Chloride 5 mg Q12HR PO 12/20/24 10:00 12/20/24 08:23 5 MG Diagnostic Test (Pha) 1 strip ACHS 12/20/24 11:30 12/20/24 12:57 1 STRIP Insulin Human Regular ACHS SC 12/20/24 11:30 12/20/24 12:56 3 UNITS Dextrose 50 ml UD PRN IV 12/20/24 09:15 Atorvastatin Calcium 40 mg HS PO 12/20/24 22:00 Patient Own Medication 1 tab DAILY PO 12/20/24 10:00 UNV Patient Own Medication 1 tab DAILY PO 12/20/24 10:00 Allopurinol 300 mg DAILY PO 12/20/24 10:00 12/20/24 12:28 300 MG laboratory and microbiology Laboratory Tests 12/20/24 04:07 12/19/24 17:48 Test 12/20/24 04:07 Range/Units Serum Glucose 210 H 74-106 mg/dL Problem List IABETES POLYURIA POLYDIPSIA ELEVATED BS HYPOVOLEMIA HYPOKALEMIA WITH SX OF DIZZINESS, FATIGUE HYPERLIPIDEMIA Assessment/Plan CORRECT VOLUME DEPLETION CORRECT HYPOKALEMIA LABS CHECK FOR INFECTION COULD ACCOUNT FOR HYPERGLYCEMIA HEPATIC STEATOSIS DIVERTICULOSIS CXR NEGATIVE UA PENDING Plan discussed with: Patient JUSTIN KOROMA MD Dec 20, 2024 13:47
[2024-12-20 14:00] VITALS: BP 128/64; PULSE 64; RESP 18; TEMP 97.9; O2SAT 96
[2024-12-20 15:03] LABS: Urine Protein, UAD Negative (Negative)
[2024-12-20 15:03] LABS: INR 0.97 (0.9-1.15); Partial Thromboplastin Time 28.3 SEC (24.5-34.5); Prothrombin Time 10.3 sec (9.3-11.8)
--- NOTE | 2024-12-20 15:04 | DVHPNRES ---
Progress Note Date Seen: Dec 20, 2024 Resident Creating Document: LOLI RODRIGUEZ RESIDENT Medical Necessity Reason Pt with a Central, PICC or Fol: No Subjective Review of Systems This is a 74-year-old female with past medical history of DM2, hypertension, HLD, bilateral cataract surgery, hysterectomy came to ED with the complain of her blood sugar level remained more than 250 for last five days. Patient was denies any recently started new medication or changes had diet. She also feels tired, occasional sweaty, sleepy, mild vertigo, nausea, And dry mouth. She denies any chest pain, fever, cough, vertigo, abdominal pain, nausea, vomiting, diarrhea, focal weakness. patient also reports she has a UTI and has been seen Dr. Posada for it and is taking antibiotic nitrofurantoin for the past 7 days. She denies any dysuria, increased frequency, or burning micturition. PAST MEDICAL HISTORY: DM2, High HLD, HTN Surgical History: Hysterectomy, BILATERAL CATARACTS SURGERY Family History: Reviewed, Family hx of DM Social History : Patient lives at home. She reports quitting smoking 7 years ago. Said she had 8-9 cigarettes per day for 20 years. Currently does not smoke. She denies taking alcohol or any other drugs. Allergy: No known allergy Home medication: Lisinopril, oxybutynin, chlorthalidone, Jardiance PCP: Dr. Keanu TORREZ: Patient was seen and examined by me at the bedside. Overnight events reviewed. Today says she feels foggy and tired. She also complains of swelling in her legs due to sitting down and hanging her legs for a long while. she also complains of pain in the flank bilaterally. Objective vital signs Vital Sign Date Time Temp Pulse Resp B/P (MAP) Pulse Ox O2 Delivery O2 Flow Rate FiO2 12/20/24 07:49 97.9 72 16 122/82 (95) 97 97.9 medications Current Medications Medications Dose Ordered Sig/Cassi Route Start Time Stop Time Status Last Admin Dose Admin Nitroglycerin 0.4 mg Q5MINP PRN SL 12/19/24 21:45 Morphine Sulfate 2 mg Q30M PRN IV 12/19/24 21:45 Insulin Glargine 10 units HS SC 12/19/24 22:00 Insulin Human Lispro 5 units AC SC 12/20/24 07:00 12/20/24 12:57 5 UNITS Sodium Chloride 1,000 ml @ 100 mls/hr Q10H IV 12/19/24 22:00 12/20/24 11:10 100 MLS/HR Enoxaparin Sodium 30 mg DAILY SC 12/20/24 10:00 12/20/24 11:28 30 MG Pantoprazole Sodium 40 mg DAILY@0600 PO 12/20/24 06:00 12/20/24 08:23 40 MG Oxybutynin Chloride 5 mg Q12HR PO 12/20/24 10:00 12/20/24 08:23 5 MG Diagnostic Test (Pha) 1 strip ACHS 12/20/24 11:30 12/20/24 12:57 1 STRIP Insulin Human Regular ACHS SC 12/20/24 11:30 12/20/24 12:56 3 UNITS Dextrose 50 ml UD PRN IV 12/20/24 09:15 Atorvastatin Calcium 40 mg HS PO 12/20/24 22:00 Patient Own Medication 1 tab DAILY PO 12/20/24 10:00 UNV Patient Own Medication 1 tab DAILY PO 12/20/24 10:00 Allopurinol 300 mg DAILY PO 12/20/24 10:00 12/20/24 12:28 300 MG Examination General Appearance: Alert, Oriented X3, Cooperative HEENT: PERRLA, EOMI Respiratory: Clear to auscultation, Normal air movement Cardiovascular: Normal S1, Normal S2, No murmurs Abdominal: Normal bowel sounds, Soft, No tenderness, No hepatospenomegaly Extremities: No clubbing, No cyanosis Skin: No rashes, No breakdown Neuro: Normal gait, Normal speech, Strength at 5/5 X4 ext laboratory and microbiology Laboratory Tests 12/20/24 04:07 12/19/24 17:48 Test 12/20/24 04:07 Range/Units Serum Glucose 210 H 74-106 mg/dL Labs and/or images reviewed: Labs reviewed by me, Image(s) reviewed by me Problem List/Assessment/Plan Problem List/Assessment/Plan # Type2 diabetes mellitus with hyperglycemia ([id number]-4.3) without DKA/HHS -mild ISS and Accu-Cheks -Monitor fingerstick blood sugars -normal anion gap and non ketoacidosis noted -serum osmolality within normal limits # WYATT likely vasomotor nephropathy on CKD -Serum creatinine 1.38, unknown baseline -IVF was given -avoid nephrotoxic drug -monitor lab # ? Pyelonephritis # acute complicated cystitis/UTI -evident on urinalysis -ceftriaxone given -urine cultures sent -CT reveals: No acute abdominal or pelvic findings. No hydronephrosis or nephrolithiasis # Hypokalemia - Repleting - monitor labs # Diffuse hepatic steatosis - seen on CT scan abdomen pelvis - outpatient follow up # Sigmoid diverticulosis - seen on CT scan abdomen pelvis - outpatient follow-up # Hypercalcemia likely dehydration -IVF fluids given -PTH, vitamin-D level order # Hyperlipidemia -atorvastatin 40 mg p.o. daily -lipid profile we will follow # Essential hypertension -Lisinopril 40 mg p.o. daily, hold now due to WYATT -Monitor BP # Urinary incontinence - continue oxybutynin Diet diabetic GI prophylaxis: Protonix DVT prophylaxis: Lovenox Goals of care discussions, more than 25 minute spent. Full code status Case and plan discussed with Dr. Jay, Patient, Other (Nurse) Plan discussed with: Other (RN) Date of Service: Dec 20, 2024 Billing Provider: FOREST JAY MD Common Visit Codes: [id number] INP/OBS CARE(HIGH) LOLI RODRIGUEZ RESIDENT Dec 20, 2024 15:04 KAI PEARCE RESIDENT Dec 20, 2024 16:31 FOREST JAY MD Dec 20, 2024 23:09
[2024-12-20 15:32] VITALS: RESP 16
[2024-12-20] MEDS: cefTRIAXone 1GM/50ML D5W 50 ML IV ONE (18:23)
[2024-12-20 20:00] VITALS: PULSE 85; RESP 18; O2SAT 96
[2024-12-20 21:00] VITALS: BP 160/89; PULSE 68; RESP 18; TEMP 97.7; O2SAT 98
[2024-12-20] MEDS: ATORVASTATIN 20 MG TAB PO SCH (22:34)
[2024-12-20] MEDS: INSULIN LANTUS (GLARGINE) 1 /0.01ml (100units/ml) SC SCH (22:42)
[2024-12-20 23:12] VITALS: BP 113/60; PULSE 64
[2024-12-21 01:00] VITALS: BP 134/86; PULSE 85; RESP 18; TEMP 97.4; O2SAT 96
[2024-12-21 05:00] VITALS: BP 102/62; PULSE 76; RESP 20; TEMP 97.5; O2SAT 97
[2024-12-21 06:39] LABS: Alanine Aminotransferase 32 U/L (7-40); Albumin 3.7 g/dL (3.2-4.8); Alkaline Phosphatase 55 U/L (46-116); Anion Gap 11 (5-15); BUN/Creatinine Ratio 20.9 (10.0-20.0); Bilirubin, Total 0.5 mg/dL (0.2-1.0); Calcium 10.1 mg/dL (8.7-10.4); Carbon Dioxide 22 mmol/L (20-31); Sodium 141 mmol/L (136-145)
[2024-12-21 06:45] LABS: Blood Urea Nitrogen 23 mg/dL (9-23); Chloride 108 mmol/L (98-107); Glucose 155 mg/dL (74-106); Potassium 3.3 mmol/L (3.5-5.1); Total Protein 5.6 g/dL (5.7-8.2)
[2024-12-21 09:00] VITALS: BP 111/50; PULSE 61; RESP 16; TEMP 97.8; O2SAT 98
[2024-12-21] MEDS: POTASSIUM CHL 20 Meq TABLET PO ONE (09:28)
[2024-12-21] MEDS: cefTRIAXone 1GM/50ML D5W 50 ML IV SCH (09:29)
[2024-12-21] MEDS ORDERED: CEPH250C PO (11:06)
[2024-12-21 11:17] VITALS: TEMP 36.6
[2024-12-21] MEDS: EMPAGLIFLOZIN 10 MG TAB PO SCH (11:41)
--- NOTE | 2024-12-21 15:51 | DVHPN2 ---
Progress Note - Dictate Date Seen: Dec 21, 2024 Medical Necessity Reason Pt with a Central, PICC or Fol: No Subjective PT WITH DIABETES POLYURIA POLYDIPSIA ELEVATED BS HYPOVOLEMIA HYPOKALEMIA WITH SX OF DIZZINESS, FATIGUE vital signs Vital Sign Date Time Temp Pulse Resp B/P (MAP) Pulse Ox O2 Delivery O2 Flow Rate FiO2 12/21/24 11:17 36.6 12/21/24 09:00 61 16 111/50 (70) 98 12/21/24 07:30 Room Air* 0 21 Total Intake and Output 12/20/24 12/20/24 12/21/24 15:00 23:00 07:00 Intake Total 100 ml 0 ml 1250 ml Balance 100 ml 0 ml 1250 ml medications Current Medications Medications Dose Ordered Sig/Cassi Route Start Time Stop Time Status Last Admin Dose Admin Patient Own Medication 1 tab DAILY PO 12/20/24 10:00 UNV laboratory and microbiology Laboratory Tests 12/21/24 05:37 12/19/24 17:48 Test 12/21/24 05:37 Range/Units Serum Glucose 155 H 74-106 mg/dL Problem List IABETES POLYURIA POLYDIPSIA ELEVATED BS HYPOVOLEMIA HYPOKALEMIA WITH SX OF DIZZINESS, FATIGUE HYPERLIPIDEMIA Assessment/Plan CORRECT VOLUME DEPLETION CORRECT HYPOKALEMIA LABS CHECK FOR INFECTION COULD ACCOUNT FOR HYPERGLYCEMIA HEPATIC STEATOSIS DIVERTICULOSIS CXR NEGATIVE UA PENDING LAB ERROR WITH INR Plan discussed with: Patient JUSTIN KOROMA MD Dec 21, 2024 15:51
--- NOTE | 2024-12-21 16:00 | DVHDSRES ---
Discharge Summary Date of Admission Resident Creating Document: LOLI RODRIGUEZ RESIDENT Dec 19, 2024 at 21:39 Date of Discharge: Dec 21, 2024 Admitting Diagnosis # Type2 diabetes mellitus with hyperglycemia without DKA/HHS Labs/Diagnostic Data: Laboratory Results Test 12/21/24 10:59 12/21/24 05:37 12/20/24 14:30 12/20/24 14:23 POC Glucose 197 mg/dl (70-106) Sodium Level 141 mmol/L (136-145) Potassium Level 3.3 mmol/L (3.5-5.1) Chloride Level 108 mmol/L (98-107) Carbon Dioxide Level 22 mmol/L (20-31) Anion Gap 11 (5-15) Blood Urea Nitrogen 23 mg/dL (9-23) Creatinine 1.10 mg/dL (0.550-1.02) Glomerular Filtration Rate Calc 53 mL/min (>90) BUN/Creatinine Ratio 20.9 (10.0-20.0) Serum Glucose 155 mg/dL (74-106) Calcium Level 10.1 mg/dL (8.7-10.4) Total Bilirubin 0.5 mg/dL (0.2-1.0) Aspartate Amino Transferase (AST) 24 U/L (13-40) Alanine Aminotransferase (ALT) 32 U/L (7-40) Alkaline Phosphatase 55 U/L (46-116) Total Protein 5.6 g/dL (5.7-8.2) Albumin 3.7 g/dL (3.2-4.8) Urine Color Colorless (Yellow) Urine Clarity Clear (Clear) Urine pH 5.0 (5.0-9.0) Urine Specific [place] 1.012 (1.001-1.035) Urine Protein Negative (Negative) Urine Ketones Negative (Negative) Urine Blood Negative /uL (Negative) Urine Nitrite 2+ (Negative) Urine Bilirubin Negative (Negative) Urine Urobilinogen Normal mg/dL (Negative) Urine Leukocyte Esterase 1+ /uL (Negative) Urine RBC 1 /hpf (0 - 4) Urine Microscopic WBC 8 /HPF (0-5) Urine Squamous Epithelial Cells Few /hpf (<5) Urine Bacteria Few /hpf (None Seen) Urine Glucose 4+ mg/dL (Normal) Prothrombin Time 10.3 sec (9.3-11.8) Prothrombin Time INR 0.97 (0.9-1.15) Activated Partial Thromboplast Time 28.3 SEC (24.5-34.5) Test 12/20/24 09:52 12/20/24 04:07 12/19/24 17:48 Thyroid Stimulating Hormone (TSH) 0.48 uIU/mL (0.55-4.78) Hemoglobin A1c 8.0 % A1C (<5.7) Magnesium Level 2.2 mg/dL (1.6-2.6) Triglycerides Level 219 mg/dL (< 150) Cholesterol Level 251 mg/dL (< 200) LDL Cholesterol 208 mg/dL (< 100) HDL Cholesterol 35 mg/dL (40-59) Vitamin D 25-Hydroxy 66.3 ng/mL (30.0-100) Parathyroid Hormone (Intact) 69.4 pg/mL (18.4-80.1) White Blood Count 9.4 10^3/uL (4.4-10.8) Red Blood Count 5.43 10^6/uL (4.0-5.20) Hemoglobin 17.1 g/dL (12.2-16.2) Hematocrit 49.9 % (36.0-46.0) Mean Corpuscular Volume 92.1 fL (80.0-100.0) Mean Corpuscular Hemoglobin 31.6 pg (28.0-32.0) Mean Corpuscular Hemoglobin Concent 34.3 g/dL (32.0-36.0) Red Cell Distribution Width 12.7 % (11.8-14.3) Platelet Count 206 10^3/uL (140-450) Mean Platelet Volume 8.9 fL (6.9-10.8) Neutrophils (%) (Auto) 66.9 % (37.0-80.0) Lymphocytes (%) (Auto) 24.2 % (10.0-50.0) Monocytes (%) (Auto) 7.6 % (0.0-12.0) Eosinophils (%) (Auto) 0.9 % (0.0-7.0) Basophils (%) (Auto) 0.4 % (0.0-2.0) Neutrophils # (Auto) 6.3 10 ^3/uL (1.6-8.6) Lymphocytes # (Auto) 2.3 10 ^3/uL (0.4-5.4) Monocytes # (Auto) 0.7 10 ^3/uL (0-1.3) Eosinophils # (Auto) 0.1 10 ^3/uL (0-0.8) Basophils # (Auto) 0 10 ^3/uL (0-0.2) Nucleated Red Blood Cells 0.3 % Phosphorus Level 2.9 mg/dL (2.4-5.1) Beta-Hydroxybutyric Acid 1.412 mmol/L (< 0.4) Other Laboratory Tests 12/21/24 05:37 12/19/24 17:48 Brief Hx & Hospital Course: Review of Systems This is a 74-year-old female with past medical history of DM2, hypertension, HLD, bilateral cataract surgery, hysterectomy came to ED with the complain of her blood sugar level remained more than 250 for last five days. Patient was denies any recently started new medication or changes had diet. She also feels tired, occasional sweaty, sleepy, mild vertigo, nausea, And dry mouth. She denies any chest pain, fever, cough, vertigo, abdominal pain, nausea, vomiting, diarrhea, focal weakness. patient also reports she has a UTI and has been seen Dr. Chatman for it and is taking antibiotic nitrofurantoin for the past 7 days. She denies any dysuria, increased frequency, or burning micturition. PMH: DM2, High HLD, HTN SMH: Hysterectomy, BILATERAL CATARACTS SURGERY Family History: Reviewed, Family hx of DM Social History : Patient lives at home. She reports quitting smoking 7 years ago. Said she had 8-9 cigarettes per day for 20 years. Currently does not smoke. She denies taking alcohol or any other drugs. Allergy: No known allergy Home medication: Lisinopril, oxybutynin, chlorthalidone, Jardiance PCP: Dr. Chatman Brief history of hospitalization: Patient had Type2 diabetes mellitus with hyperglycemia (RgF4i-9.3) without DKA/HHS. we started her on mild ISS and monitored her fingerstick blood sugar levels. She had normal anion gap and non ketoacidosis was noted. Her serum osmolarity was within normal limits. patient was given regular insulin, insulin lispro, insulin glargine. Blood sugar levels are now 155, Improved from levels of 254 on the day she was admitted. 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 IVF was given and she was asked to avoid nephrotoxic drugs. For possible pyelonephritis and acute complicated cystitis which was evident on urine analysis ceftriaxone was given and urine cultures were sent. Patient was given morphine p.r.n.. A CT revealed no acute abdominal or pelvic findings and no hydronephrosis or nephrolithiasis. For patient's hypokalemia potassium was repleted and labs were monitored. For patient's hypercalcemia likely due to dehydration, IV fluids were repleted. For her diffuse hepatic steatosis which was seen on CT abdomen pelvis we have asked her to follow up outpatient. Her sigmoid diverticulosis seen on CT scan abdomen pelvis, we have asked her to follow up outpatient as well. For patient's hyperlipidemia, atorvastatin 40 mg was continued and for essential hypertension lisinopril 40 mg was on hold due to WYATT. We continued to monitor her BP. For urinary incontinence oxybutynin was continued. Patient is now stable hemodynamically to discharge. We have asked her to continuously hydrate herself. Patient counseled on meeting Dr. Chatman within a week. Patient communicates understanding. Discharging patient with Keflex 500 mg p.o. b.i.d. for 7 days. And follow up with PCP. General Appearance: Alert, Oriented X3, Cooperative HEENT: PERRLA, EOMI Respiratory: Clear to auscultation, Normal air movement Cardiovascular: Normal S1, Normal S2, No murmurs Abdominal: Normal bowel sounds, Soft, No tenderness, No hepatospenomegaly, tenderness in bilateral flanks Extremities: No clubbing, No cyanosis Skin: No rashes, No breakdown Neuro: Normal gait, Normal speech, Strength at 5/5 X4 ext Psychological exam: normal mental status Operations or Procedures CHEST RADIOGRAPH IMPRESSION: 1. No acute disease. Exam: CT CT AB PEL WO CON-NO ORAL OR IV IMPRESSION: 1. No acute abdominal or pelvic findings. No hydronephrosis or nephrolithiasis. Diffuse hepatic steatosis. Sigmoid diverticulosis. Radiation optimization: All CT scans at this facility use at least one of these dose optimization techniques: Automated exposure control mA and/or kV adjustment per patient size (includes targeted exams where dose is matched to clinical indication) or iterative reconstruction. HS:Y Condition at Discharge: Stable Final Diagnosis/Problems List # Type2 diabetes mellitus with hyperglycemia (XdL0i-9.3) without DKA/HHS # WYATT likely vasomotor nephropathy on CKD # ? Pyelonephritis # acute complicated cystitis/UTI # Hypokalemia # Diffuse hepatic steatosis # Sigmoid diverticulosis # Hypercalcemia likely dehydration # Hyperlipidemia # Essential hypertension # Urinary incontinence Discharge Disposition: Home Discharge Instruct/Medications Diet: Consistent carbohydrate, Cardiac 2g Na,low cholest Activity: No Restrictions, As Tolerated Follow Up/Referral: f/u with dr chatman within 1 week Medications: continue as prescribed in emr Scheduled Atorvastatin Calcium (Atorvastatin Calcium), 1 TAB PO QPM, (Reported) Cephalexin (Keflex Capsule), 2 CAP PO BID Chlorthalidone (Chlorthalidone), 1 TAB PO DAILY, (Reported) Cholecalciferol (Vitamin D3 Ultra Potency), 1 TAB PO DAILY, (Reported) Diclofenac Sodium (Topical) (Voltaren Arthritis Pain), 2 GRAMS EX QID Empagliflozin (Jardiance), 1 TAB PO DAILY, (Reported) Lisinopril (Lisinopril), 1 TAB PO QAM, (Reported) Meloxicam (Meloxicam), 1 TAB PO DAILY Semaglutide (Ozempic), 1 MG SC QWEEKLY, (Reported) Sitagliptin Phosphate (Januvia), 1 TAB PO DAILY, (Reported) Discontinued Medications Allopurinol (Allopurinol), 1 TAB PO DAILY, (Reported) Discharge Statement: "Patient was advised to return to the ER or call 911 if any headaches, dizziness, shortness of breath, chest pain, abdominal pain, bleeding, fevers, or worsening of medical condition. Patient was counseled about treatment plan, medications, possible side effects, patientverbalized understanding. All questions were answered to the best of my ability. 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 ?pylonephritis acute complicated ystitis/UTI? hypokalemia diffuse hepatic steatosis sigmoid diverticulitis hypercalcemia likely due to dehydration hyperlipediemia essential htn urinary incontinence Date of Service: Dec 21, 2024 Billing Provider: FOREST JAY MD Common Visit Codes: 33441-[id number] DISCH DAY >30min LOLI RODRIGUEZ RESIDENT Dec 21, 2024 16:00 FOREST JAY MD Dec 22, 2024 08:14
== END 2024-12-21 13:40 | disposition home or self-care (01) | DRG 637 ==
LOC: ER 17:14 → OVERFLOW 21:39 → EAST 12-20 17:25
PROVIDERS: ADMIT Internal Medicine; ATTEND Internal Medicine
DX: E11.65 Type 2 diabetes mellitus with hyperglycemia (principal); N17.0 Acute kidney failure with tubular necrosis; N30.00 Acute cystitis without hematuria; N12 Tubulo-interstitial nephritis, not specified as acute or chronic; E78.5 Hyperlipidemia, unspecified; E87.6 Hypokalemia; E86.0 Dehydration; E83.52 Hypercalcemia; N18.9 Chronic kidney disease, unspecified; E88.89 Other specified metabolic disorders; E86.1 Hypovolemia; K76.0 Fatty (change of) liver, not elsewhere classified; K57.30 Diverticulosis of large intestine without perforation or abscess without bleeding; I12.9 Hypertensive chronic kidney disease with stage 1 through stage 4 chronic kidney disease, or unspecified chronic kidney disease; E11.22 Type 2 diabetes mellitus with diabetic chronic kidney disease; Z79.899 Other long term (current) drug therapy; Z90.710 Acquired absence of both cervix and uterus; Z87.891 Personal history of nicotine dependence; Z79.84 Long term (current) use of oral hypoglycemic drugs
CPT/HCPCS: 36415; 71045; 74176; 80048; 80053; 80061; 81001; 82010; 82306; 82962; 83036; 83735; 83970; 84100; 84443; 85025; 85610; 85730; 87086; G0378; J1815; J3480

== ENCOUNTER 2024-12-26 13:35 | Outpatient (CLI) | payer MEDICARE ==
[2024-12-26 13:35] VITALS: BP 140/64; PULSE 63; RESP 16; O2SAT 98
[~2024-12-26 13:35] MED LIST changes: -ALLO300T2 PO; +CEPH250C PO
[2024-12-26] MEDS: POTASSIUM CHL 20 Meq TABLET PO ONE ×2 (13:48)
[2024-12-26 13:49] VITALS: BP 140/71; PULSE 60; RESP 16; O2SAT 98
== END 2024-12-26 17:00 | disposition home or self-care (01) ==
LOC: CHF HDHVI 13:35
PROVIDERS: ATTEND Internal Medicine Cardiovascular Disease
DX: E87.6 Hypokalemia (principal)
CPT/HCPCS: G0463